=== PATIENT | male | born 1985 | race Caucasian/White ===

== ENCOUNTER 2018-07-21 10:12 | Inpatient (IN) | payer OTHER, SELFPAY ==
[2018-07-21] VITALS (11 sets, daily range): BP systolic 103–129; BP diastolic 52–69; PULSE 56–83; RESP 14–18; TEMP 36.4–37.2; O2SAT 97–100; BMI 22.4; BMI 19.0
--- NOTE | 2018-07-21 10:34 | DI.RAD.S_ITS ---
PROCEDURE: XR CHEST 2V INDICATIONS: blood in sputum coughing up blood h/o astma, non smoker TECHNIQUE: 2 views of the chest were acquired. COMPARISON: [facility], , CHEST 2 VIEW, 07/31/2011, 1:10. FINDINGS: Surgical changes and devices: None. Lungs and pleura: Lungs are clear. No pleural effusions or pneumothorax. Likely fibrotic changes are seen at the right lung base. Lungs are hyperexpanded. Mediastinum: Mediastinal contours are normal. Heart size is normal. Bones and chest wall: No suspicious bony abnormalities. Soft tissues appear unremarkable. IMPRESSION: Hyperexpanded lungs, without an acute cardiopulmonary process identified. For this patient's presenting history of hemoptysis, please consider a dedicated chest CT with contrast for further evaluation. Dictated by: Grant South M.D. on 07/21/2018 at 10:13 Approved by: Grant South M.D. on 07/21/2018 at 10:14
--- NOTE | 2018-07-21 11:54 | PC.NURSE ---
pt c/o bright red sputum, with cough started on . headache associated with cough, took ibuprofen this am, headache resolved now.
--- NOTE | 2018-07-21 12:15 | ED.URI ---
HPI - URI/Sore Throat <MUSTAPHA Braun - Last Filed: 07/21/18 22:05> General Chief Complaint: Upper Respiratory Symptoms Stated Complaint: coughing up blood Time Seen by Provider: 07/21/18 12:13 Source: patient Mode of arrival: ambulatory Limitations: no limitations History of Present Illness HPI Narrative: 33-year-old male with history of asthma that is a nonsmoker here for complaint of hemoptysis over the the past 3-4 days. He reports that he has had 4-6 episodes of hemoptysis daily for the past several days. No chest pain. He denies any fevers. No recent travel. He denies any exposure to TB. No fevers no chills. No shortness of breath. He does report having a cough over this is not new to him due to his asthma he states. He is able to speak full sentences. The denies any other concerns or complaints at this timeframe. Complaint: other Related Data Home Medications Medication Instructions Recorded Confirmed ibuprofen 400 mg PO Q4-6H PRN 07/21/18 07/21/18 mometasone-formoterol 1 puff INHALATION BID 07/21/18 07/21/18 zafirlukast 20 mg PO BID 07/21/18 07/21/18 Previous Rx's Medication Instructions Recorded pantoprazole 40 mg PO BID #1 tab 07/23/18 sumatriptan succinate [Imitrex] 100 mg PO PRN PRN #1 tab 07/23/18 warfarin [Coumadin] 5 mg PO 1700 #1 tab 07/23/18 Allergies Allergy/AdvReac Type Severity Reaction Status Date / Time No Known Drug Allergies Allergy Verified 07/21/18 10:31 Review of Systems <MUSTAPHA Braun - Last Filed: 07/21/18 22:05> Constitutional Denies chills, Denies fever(s), Denies lethargy and Denies weakness Eyes Denies change in vision, Denies eye discharge, Denies irritation and Denies loss of vision ENT Ears, Nose, Mouth, and Throat: Denies change in voice, Denies neck pain, Denies sore throat and Denies throat swelling Cardiovascular Denies chest pain, Denies irregular heart rhythm, Denies lightheadedness, Denies palpitations and Denies orthopnea Respiratory Denies wheezing Comments: Hemoptysis Musculoskeletal Denies neck pain Integumentary/Breasts Denies pruritus, Denies erythema, Denies rash and Denies wounds Neurologic Denies loss of vision and Denies weakness Endocrine Denies palpitations Hematologic/Lymphatic Denies easy bruising Allergic/Immunologic Denies urticaria, Denies throat swelling and Denies wheezing PFSH <MUSTAPHA Braun - Last Filed: 07/21/18 22:05> Medical History Asthma (Acute) GERD (gastroesophageal reflux disease) (Acute) History of alcohol abuse (Acute) Surgical History No history of previous surgery (Acute) Social History household members: spouse Smoking Status: Never smoker Social History household members: spouse Smoking Status: Never smoker Exam <MUSTAPHA Braun - Last Filed: 07/21/18 22:05> Initial Vital Signs Initial Vital Signs: Vital Signs Temperature 98.9 F 07/21/18 10:26 Pulse Rate 83 07/21/18 10:26 Respiratory Rate 18 07/21/18 10:26 Blood Pressure 117/65 07/21/18 10:26 Pulse Oximetry 98 07/21/18 10:26 Const General: cooperative and well developed Nutritional Appearance: well nourished Orientation: alert, awake, oriented x3 and not confused [facility] Mouth: oral mucosae normal and moist mucous membranes Throat: posterior oropharynx normal Eyes Conjunctivae: conjunctivae normal Sclera: sclerae normal Pupils: PERRL EOM: EOM intact bilaterally Chest Chest: normal inspection of the chest Resp Effort & Inspection: normal respiratory effort, able to speak in complete sentences, no respiratory distress and no use of accessory muscles Auscultation: clear to auscultation bilaterally, no rales, no rhonchi and no wheezes Cardio Rate: regular rate Rhythm: regular rhythm Heart Sounds: no click, no gallops, no murmurs and no rubs Pulses: normal peripheral pulses Skin General: no rashes or lesions noted, No jaundice and No petechiae Neuro General: alert, oriented x3, gait normal and no focal motor deficits Speech: speech normal <Rosanna C Mank, DO - Last Filed: 07/25/18 02:34> Initial Vital Signs Initial Vital Signs: Vital Signs Temperature 98.9 F 07/21/18 10:26 Pulse Rate 83 07/21/18 10:26 Respiratory Rate 18 07/21/18 10:26 Blood Pressure 117/65 07/21/18 10:26 Pulse Oximetry 98 07/21/18 10:26 Scores <MUSTAPHA Braun - Last Filed: 07/21/18 22:05> Wells' Criteria for PE Clinical signs and symptoms of PE: No PE is #1 Dx or equally likely: No Heart rate > 100: No Immobilization at least 3 days or surg in previous 4 weeks: No History of PE or DVT: No Hemoptysis: Yes Malignancy w/Treatment within 6 months or palliative: No Leroy' PE Score total: 1 Course <MUSTAPHA Braun - Last Filed: 07/21/18 22:05> Orders Ordered: Discontinued Medications Acetaminophen (Tylenol) 650 mg PO Q6HR PRN PRN Reason: Headache Last Admin: 07/22/18 11:08 Dose: 650 mg Admin: 07/21/18 22:31 Dose: 650 mg Acetaminophen/Butalbital/Caffeine (Fioricet) 1 each PO Q4HR PRN PRN Reason: Headache Last Admin: 07/23/18 11:35 Dose: 1 each Admin: 07/22/18 09:37 Dose: 1 each Hydrocodone Bitart/Acetaminophen ([place] 5/325) 1 tab PO NOW ONE Stop: 07/21/18 15:47 Last Admin: 07/21/18 15:49 Dose: 1 tab Heparin Sodium (Porcine) (Heparin) 5,000 unit 80 unit/kg (5000 unit) IV NOW ONE Stop: 07/21/18 14:05 Last Admin: 07/21/18 14:11 Dose: 5,000 unit Heparin Sodium (Porcine) (Heparin) 2,000 unit IV NOW ONE Stop: 07/21/18 22:46 Last Admin: 07/22/18 00:13 Dose: 2,000 unit Heparin Sodium (Porcine) (Heparin) 2,000 unit IV NOW ONE Stop: 07/22/18 12:39 Last Admin: 07/22/18 12:51 Dose: 2,000 unit Heparin Sodium/Dextrose (Heparin Drip) 25,000 unit in 500 mls @ 22.698 mls/hr IV CONT FLOR; Protocol Last Admin: 07/23/18 12:18 Dose: 17.45 units/kg/hr, 22 mls/hr Titration: 07/23/18 11:30 Dose: 17.45 units/kg/hr, 22 mls/hr Admin: 07/22/18 12:46 Dose: 17.45 units/kg/hr, 22 mls/hr Titration: 07/22/18 12:46 Dose: 15.86 units/kg/hr, 20 mls/hr Titration: 07/22/18 05:08 Dose: 15.86 units/kg/hr, 20 mls/hr Admin: 07/21/18 14:43 Dose: 18 units/kg/hr, 22.698 mls/hr Sodium Chloride (Normal Saline 0.9%) 1,000 mls @ 75 mls/hr IV CONT FLOR Stop: 07/23/18 11:49 Last Infusion: 07/23/18 11:37 Dose: 0 mls/hr Admin: 07/22/18 23:00 Dose: 75 mls/hr Influenza Virus Vaccine (Flu Vaccine) 0.5 ml IM .ONCE ONE Stop: 07/22/18 09:01 Last Admin: 07/22/18 08:58 Dose: 0.5 ml Mometasone- Formoterol (Dulera) 1 Puff 1 puff INHALATION BID [facility] Last Admin: 07/22/18 12:46 Dose: Not Given Admin: 07/22/18 09:01 Dose: Not Given Mometasone- Formoterol (Dulera) 1 Puff 1 puff INHALATION RTBID [facility] Last Admin: 07/23/18 05:42 Dose: 1 puff Admin: 07/22/18 20:32 Dose: 1 puff Admin: 07/22/18 09:40 Dose: 1 puff Non-Formulary Medication (Patient's Own Medication) 0 each PO DAILY PRN PRN Reason: Home medication Pantoprazole Sodium (Protonix) 40 mg IV BID [facility] Last Admin: 07/22/18 00:52 Dose: 40 mg Pantoprazole Sodium (Protonix) 40 mg PO BID [facility] Last Admin: 07/23/18 09:11 Dose: 40 mg Admin: 07/22/18 22:04 Dose: 40 mg Admin: 07/22/18 08:58 Dose: 40 mg Sodium Chloride (Normal Saline 0.9% Flush) 10 ml IV PRN PRN PRN Reason: Flush Sumatriptan Succinate (Imitrex) 100 mg PO PRN PRN PRN Reason: Headache Last Admin: 07/22/18 19:15 Dose: 100 mg Admin: 07/22/18 17:12 Dose: 100 mg Warfarin Sodium (Coumadin) 5 mg PO 1700 [facility] Last Admin: 07/22/18 19:08 Dose: 5 mg Zafirlukast (Accolate) 20 mg PO BID [facility] Last Admin: 07/23/18 05:45 Dose: 20 mg Admin: 07/22/18 20:32 Dose: 20 mg Admin: 07/22/18 08:58 Dose: 20 mg Admin: 07/22/18 00:09 Dose: Not Given Vital Signs - 8 hr 07/21/18 14:21 07/21/18 14:30 07/21/18 15:00 Temperature Pulse Rate 80 71 74 Respiratory Rate 14 15 14 Blood Pressure Blood Pressure [Left Arm] 117/63 122/69 113/67 Pulse Oximetry 98 100 100 07/21/18 16:19 07/21/18 16:43 07/21/18 16:55 Temperature 97.6 F Pulse Rate 70 69 62 Respiratory Rate 16 16 18 Blood Pressure 103/59 L 129/54 L Blood Pressure [Left Arm] 124/56 L Pulse Oximetry 97 100 97 07/21/18 20:31 07/21/18 21:58 Temperature 97.7 F Pulse Rate 56 L Respiratory Rate 18 Blood Pressure 115/52 L Blood Pressure [Left Arm] Pulse Oximetry 97 <Rosanna Alexis DO - Last Filed: 07/25/18 02:34> Orders Ordered: Discontinued Medications Acetaminophen (Tylenol) 650 mg PO Q6HR PRN PRN Reason: Headache Last Admin: 07/22/18 11:08 Dose: 650 mg Admin: 07/21/18 22:31 Dose: 650 mg Acetaminophen/Butalbital/Caffeine (Fioricet) 1 each PO Q4HR PRN PRN Reason: Headache Last Admin: 07/23/18 11:35 Dose: 1 each Admin: 07/22/18 09:37 Dose: 1 each Hydrocodone Bitart/Acetaminophen ([place] 5/325) 1 tab PO NOW ONE Stop: 07/21/18 15:47 Last Admin: 07/21/18 15:49 Dose: 1 tab Heparin Sodium (Porcine) (Heparin) 5,000 unit 80 unit/kg (5000 unit) IV NOW ONE Stop: 07/21/18 14:05 Last Admin: 07/21/18 14:11 Dose: 5,000 unit Heparin Sodium (Porcine) (Heparin) 2,000 unit IV NOW ONE Stop: 07/21/18 22:46 Last Admin: 07/22/18 00:13 Dose: 2,000 unit Heparin Sodium (Porcine) (Heparin) 2,000 unit IV NOW ONE Stop: 07/22/18 12:39 Last Admin: 07/22/18 12:51 Dose: 2,000 unit Heparin Sodium/Dextrose (Heparin Drip) 25,000 unit in 500 mls @ 22.698 mls/hr IV CONT FLOR; Protocol Last Admin: 07/23/18 12:18 Dose: 17.45 units/kg/hr, 22 mls/hr Titration: 07/23/18 11:30 Dose: 17.45 units/kg/hr, 22 mls/hr Admin: 07/22/18 12:46 Dose: 17.45 units/kg/hr, 22 mls/hr Titration: 07/22/18 12:46 Dose: 15.86 units/kg/hr, 20 mls/hr Titration: 07/22/18 05:08 Dose: 15.86 units/kg/hr, 20 mls/hr Admin: 07/21/18 14:43 Dose: 18 units/kg/hr, 22.698 mls/hr Sodium Chloride (Normal Saline 0.9%) 1,000 mls @ 75 mls/hr IV CONT FLOR Stop: 07/23/18 11:49 Last Infusion: 07/23/18 11:37 Dose: 0 mls/hr Admin: 07/22/18 23:00 Dose: 75 mls/hr Influenza Virus Vaccine (Flu Vaccine) 0.5 ml IM .ONCE ONE Stop: 07/22/18 09:01 Last Admin: 07/22/18 08:58 Dose: 0.5 ml Mometasone- Formoterol (Dulera) 1 Puff 1 puff INHALATION BID [facility] Last Admin: 07/22/18 12:46 Dose: Not Given Admin: 07/22/18 09:01 Dose: Not Given Mometasone- Formoterol (Dulera) 1 Puff 1 puff INHALATION RTBID [facility] Last Admin: 07/23/18 05:42 Dose: 1 puff Admin: 07/22/18 20:32 Dose: 1 puff Admin: 07/22/18 09:40 Dose: 1 puff Non-Formulary Medication (Patient's Own Medication) 0 each PO DAILY PRN PRN Reason: Home medication Pantoprazole Sodium (Protonix) 40 mg IV BID [facility] Last Admin: 07/22/18 00:52 Dose: 40 mg Pantoprazole Sodium (Protonix) 40 mg PO BID [facility] Last Admin: 07/23/18 09:11 Dose: 40 mg Admin: 07/22/18 22:04 Dose: 40 mg Admin: 07/22/18 08:58 Dose: 40 mg Sodium Chloride (Normal Saline 0.9% Flush) 10 ml IV PRN PRN PRN Reason: Flush Sumatriptan Succinate (Imitrex) 100 mg PO PRN PRN PRN Reason: Headache Last Admin: 07/22/18 19:15 Dose: 100 mg Admin: 07/22/18 17:12 Dose: 100 mg Warfarin Sodium (Coumadin) 5 mg PO 1700 [facility] Last Admin: 07/22/18 19:08 Dose: 5 mg Zafirlukast (Accolate) 20 mg PO BID [facility] Last Admin: 07/23/18 05:45 Dose: 20 mg Admin: 07/22/18 20:32 Dose: 20 mg Admin: 07/22/18 08:58 Dose: 20 mg Admin: 07/22/18 00:09 Dose: Not Given Vital Signs - 8 hr 07/21/18 14:21 07/21/18 14:30 07/21/18 15:00 Temperature Pulse Rate 80 71 74 Respiratory Rate 14 15 14 Blood Pressure Blood Pressure [Left Arm] 117/63 122/69 113/67 Pulse Oximetry 98 100 100 07/21/18 16:19 07/21/18 16:43 07/21/18 16:55 Temperature 97.6 F Pulse Rate 70 69 62 Respiratory Rate 16 16 18 Blood Pressure 103/59 L 129/54 L Blood Pressure [Left Arm] 124/56 L Pulse Oximetry 97 100 97 07/21/18 20:31 07/21/18 21:58 Temperature 97.7 F Pulse Rate 56 L Respiratory Rate 18 Blood Pressure 115/52 L Blood Pressure [Left Arm] Pulse Oximetry 97 MDM - URI/Sore Throat <MUSTAPHA Braun - Last Filed: 07/21/18 22:05> Lab Data Result diagrams: 07/23/18 05:30 07/23/18 05:30 Lab Results 07/21/18 07/21/18 07/21/18 Range/Units 12:45 12:45 12:45 WBC 10.0 (4.5-11.0) X10^3/uL RBC 4.57 (4.5-5.9) X10^6/uL Hgb 13.9 (13.5-17.5) g/dL Hct 41.6 (41-53) % MCV 91.1 (80-100) fL MCH 30.5 (26-34) PG MCHC 33.5 (30-36) % RDW 13.0 (11.6-14.8) % Plt Count 277 (150-400) X10^3/uL Neut % (Auto) 73.6 (50-75) % Lymph % (Auto) 19.3 L (25-40) % [place] % (Auto) 6.6 (3-14) % Eos % (Auto) 0.1 L (2-4) % Baso % (Auto) 0.4 (0-2) % Neut # (Auto) 7300 H (9343-0534) /uL Lymph # (Auto) 1900 (6697-2824) /uL [place] # (Auto) 700 (0-900) /uL Eos # (Auto) 0 (0-450) /uL Baso # (Auto) 0 (0-100) /uL PT 11.7 (10.1-12.7) SECONDS INR 1.0 (0.9-1.3) APTT 28 (26.4-36.2) SECONDS Sodium 139 (137-145) mmol/L Potassium 4.3 (3.4-5.1) mmol/L Chloride 102 (98-107) mmol/L Carbon Dioxide 28 (22-32) mmol/L BUN 12 (9-20) mg/dL Creatinine 0.70 (0.66-1.25) mg/dL Estimated GFR > 60.0 (>60) mL/min BUN/Creatinine Ratio 17.1 (6-22) Glucose 94 (70-100) mg/dL Calcium 9.3 (8.4-10.2) mg/dL Total Bilirubin 0.4 (0.2-1.3) mg/dL Conjugated Bilirubin (0.0-0.3) md/dL Unconjugated Bilirubin (0.0-1.1) mg/dL AST 32 (17-59) IU/L ALT 53 (21-72) IU/L Alkaline Phosphatase 68 (38-126) U/L Total Protein 7.2 (6.3-8.2) g/dL Albumin 4.5 (3.5-5.0) g/dL Globulin 2.7 (1.7-4.1) g/dL Albumin/Globulin Ratio 1.7 (1.0-2.8) Kcnrx-0-Hxmoahkmrvk (83-199) mg/dL Procalcitonin (<0.5) ng/mL 07/21/18 07/21/18 07/21/18 Range/Units 21:18 23:10 23:10 WBC (4.5-11.0) X10^3/uL RBC (4.5-5.9) X10^6/uL Hgb (13.5-17.5) g/dL Hct (41-53) % MCV (80-100) fL MCH (26-34) PG MCHC (30-36) % RDW (11.6-14.8) % Plt Count (150-400) X10^3/uL Neut % (Auto) (50-75) % Lymph % (Auto) (25-40) % [place] % (Auto) (3-14) % Eos % (Auto) (2-4) % Baso % (Auto) (0-2) % Neut # (Auto) (7708-0626) /uL Lymph # (Auto) (9149-7721) /uL [place] # (Auto) (0-900) /uL Eos # (Auto) (0-450) /uL Baso # (Auto) (0-100) /uL PT (10.1-12.7) SECONDS INR (0.9-1.3) APTT 58 H D (26.4-36.2) SECONDS Sodium (137-145) mmol/L Potassium (3.4-5.1) mmol/L Chloride (98-107) mmol/L Carbon Dioxide (22-32) mmol/L BUN (9-20) mg/dL Creatinine (0.66-1.25) mg/dL Estimated GFR (>60) mL/min BUN/Creatinine Ratio (6-22) Glucose (70-100) mg/dL Calcium (8.4-10.2) mg/dL Total Bilirubin 0.3 (0.2-1.3) mg/dL Conjugated Bilirubin 0.0 (0.0-0.3) md/dL Unconjugated Bilirubin 0.1 (0.0-1.1) mg/dL AST 28 (17-59) IU/L ALT 47 (21-72) IU/L Alkaline Phosphatase 66 (38-126) U/L Total Protein 6.6 (6.3-8.2) g/dL Albumin 4.0 (3.5-5.0) g/dL Globulin 2.6 (1.7-4.1) g/dL Albumin/Globulin Ratio 1.5 (1.0-2.8) Fikgd-7-Kzryohsqney 115 (83-199) mg/dL Procalcitonin (<0.5) ng/mL 07/22/18 07/22/18 07/22/18 Range/Units 04:33 04:33 04:33 WBC 7.3 (4.5-11.0) X10^3/uL RBC 4.61 (4.5-5.9) X10^6/uL Hgb 14.1 (13.5-17.5) g/dL Hct 42.2 (41-53) % MCV 91.4 (80-100) fL MCH 30.6 (26-34) PG MCHC 33.5 (30-36) % RDW 12.9 (11.6-14.8) % Plt Count 254 (150-400) X10^3/uL Neut % (Auto) 50.6 D (50-75) % Lymph % (Auto) 38.1 (25-40) % [place] % (Auto) 8.8 (3-14) % Eos % (Auto) 2.0 (2-4) % Baso % (Auto) 0.5 (0-2) % Neut # (Auto) 3700 (2188-9038) /uL Lymph # (Auto) 2800 (8141-1699) /uL [place] # (Auto) 600 (0-900) /uL Eos # (Auto) 100 (0-450) /uL Baso # (Auto) 0 (0-100) /uL PT (10.1-12.7) SECONDS INR (0.9-1.3) APTT 72 H D (26.4-36.2) SECONDS Sodium (137-145) mmol/L Potassium (3.4-5.1) mmol/L Chloride (98-107) mmol/L Carbon Dioxide (22-32) mmol/L BUN (9-20) mg/dL Creatinine (0.66-1.25) mg/dL Estimated GFR (>60) mL/min BUN/Creatinine Ratio (6-22) Glucose (70-100) mg/dL Calcium (8.4-10.2) mg/dL Total Bilirubin (0.2-1.3) mg/dL Conjugated Bilirubin (0.0-0.3) md/dL Unconjugated Bilirubin (0.0-1.1) mg/dL AST (17-59) IU/L ALT (21-72) IU/L Alkaline Phosphatase (38-126) U/L Total Protein (6.3-8.2) g/dL Albumin (3.5-5.0) g/dL Globulin (1.7-4.1) g/dL Albumin/Globulin Ratio (1.0-2.8) Cnoga-2-Qcnxejlblgz (83-199) mg/dL Procalcitonin < 0.05 (<0.5) ng/mL 07/22/18 07/22/18 07/22/18 Range/Units 10:30 18:43 18:43 WBC 8.3 (4.5-11.0) X10^3/uL RBC 4.65 (4.5-5.9) X10^6/uL Hgb 14.3 (13.5-17.5) g/dL Hct 42.5 (41-53) % MCV 91.3 (80-100) fL MCH 30.8 (26-34) PG MCHC 33.7 (30-36) % RDW 12.9 (11.6-14.8) % Plt Count 272 (150-400) X10^3/uL Neut % (Auto) 60.0 (50-75) % Lymph % (Auto) 29.1 (25-40) % [place] % (Auto) 8.9 (3-14) % Eos % (Auto) 1.5 L (2-4) % Baso % (Auto) 0.5 (0-2) % Neut # (Auto) 5000 (3778-6361) /uL Lymph # (Auto) 2400 (5645-8851) /uL [place] # (Auto) 700 (0-900) /uL Eos # (Auto) 100 (0-450) /uL Baso # (Auto) 0 (0-100) /uL PT (10.1-12.7) SECONDS INR (0.9-1.3) APTT 56 H D 75 H* D (26.4-36.2) SECONDS Sodium (137-145) mmol/L Potassium (3.4-5.1) mmol/L Chloride (98-107) mmol/L Carbon Dioxide (22-32) mmol/L BUN (9-20) mg/dL Creatinine (0.66-1.25) mg/dL Estimated GFR (>60) mL/min BUN/Creatinine Ratio (6-22) Glucose (70-100) mg/dL Calcium (8.4-10.2) mg/dL Total Bilirubin (0.2-1.3) mg/dL Conjugated Bilirubin (0.0-0.3) md/dL Unconjugated Bilirubin (0.0-1.1) mg/dL AST (17-59) IU/L ALT (21-72) IU/L Alkaline Phosphatase (38-126) U/L Total Protein (6.3-8.2) g/dL Albumin (3.5-5.0) g/dL Globulin (1.7-4.1) g/dL Albumin/Globulin Ratio (1.0-2.8) Vpult-2-Scnsyfhgkqw (83-199) mg/dL Procalcitonin (<0.5) ng/mL 07/23/18 07/23/18 07/23/18 Range/Units 00:30 05:30 05:30 WBC 7.8 (4.5-11.0) X10^3/uL RBC 4.65 (4.5-5.9) X10^6/uL Hgb 14.3 (13.5-17.5) g/dL Hct 42.6 (41-53) % MCV 91.6 (80-100) fL MCH 30.7 (26-34) PG MCHC 33.5 (30-36) % RDW 13.2 (11.6-14.8) % Plt Count 255 (150-400) X10^3/uL Neut % (Auto) 62.4 (50-75) % Lymph % (Auto) 25.3 (25-40) % [place] % (Auto) 10.0 (3-14) % Eos % (Auto) 1.8 L (2-4) % Baso % (Auto) 0.5 (0-2) % Neut # (Auto) 4900 (5402-7870) /uL Lymph # (Auto) 2000 (6866-0457) /uL [place] # (Auto) 800 (0-900) /uL Eos # (Auto) 100 (0-450) /uL Baso # (Auto) 0 (0-100) /uL PT (10.1-12.7) SECONDS INR (0.9-1.3) APTT 70 H D (26.4-36.2) SECONDS Sodium (137-145) mmol/L Potassium (3.4-5.1) mmol/L Chloride (98-107) mmol/L Carbon Dioxide (22-32) mmol/L BUN (9-20) mg/dL Creatinine (0.66-1.25) mg/dL Estimated GFR (>60) mL/min BUN/Creatinine Ratio (6-22) Glucose (70-100) mg/dL Calcium (8.4-10.2) mg/dL Total Bilirubin (0.2-1.3) mg/dL Conjugated Bilirubin (0.0-0.3) md/dL Unconjugated Bilirubin (0.0-1.1) mg/dL AST (17-59) IU/L ALT (21-72) IU/L Alkaline Phosphatase (38-126) U/L Total Protein (6.3-8.2) g/dL Albumin (3.5-5.0) g/dL Globulin (1.7-4.1) g/dL Albumin/Globulin Ratio (1.0-2.8) Pipby-1-Iutpzbiobaa (83-199) mg/dL Procalcitonin < 0.05 (<0.5) ng/mL 07/23/18 07/23/18 Range/Units 05:30 05:30 WBC (4.5-11.0) X10^3/uL RBC (4.5-5.9) X10^6/uL Hgb (13.5-17.5) g/dL Hct (41-53) % MCV (80-100) fL MCH (26-34) PG MCHC (30-36) % RDW (11.6-14.8) % Plt Count (150-400) X10^3/uL Neut % (Auto) (50-75) % Lymph % (Auto) (25-40) % [place] % (Auto) (3-14) % Eos % (Auto) (2-4) % Baso % (Auto) (0-2) % Neut # (Auto) (5242-2094) /uL Lymph # (Auto) (6452-6831) /uL [place] # (Auto) (0-900) /uL Eos # (Auto) (0-450) /uL Baso # (Auto) (0-100) /uL PT 11.8 (10.1-12.7) SECONDS INR 1.0 (0.9-1.3) APTT 66 H D (26.4-36.2) SECONDS Sodium 139 (137-145) mmol/L Potassium 4.3 (3.4-5.1) mmol/L Chloride 105 (98-107) mmol/L Carbon Dioxide 26 (22-32) mmol/L BUN 12 (9-20) mg/dL Creatinine 0.60 L (0.66-1.25) mg/dL Estimated GFR > 60.0 (>60) mL/min BUN/Creatinine Ratio 20.0 (6-22) Glucose 108 H (70-100) mg/dL Calcium 9.3 (8.4-10.2) mg/dL Total Bilirubin (0.2-1.3) mg/dL Conjugated Bilirubin (0.0-0.3) md/dL Unconjugated Bilirubin (0.0-1.1) mg/dL AST (17-59) IU/L ALT (21-72) IU/L Alkaline Phosphatase (38-126) U/L Total Protein (6.3-8.2) g/dL Albumin (3.5-5.0) g/dL Globulin (1.7-4.1) g/dL Albumin/Globulin Ratio (1.0-2.8) Ljjhq-9-Hxjjzbsjdgx (83-199) mg/dL Procalcitonin (<0.5) ng/mL Imaging Data Chest x-ray: Radiologist's impression: [address] [id number] XRay Report Signed Patient: Willian Abernathy [facility]#: [id number] : 1985Acct:[id number] Age/Sex: 33 / MDate of Service: 07/21/18 Loc: ED Accession Number: [id number] Procedure: XR chest 2V Ordering Provider: Rosanna Alexis D.O. PROCEDURE: XR CHEST 2V INDICATIONS: blood in sputum coughing up blood h/o astma, non smoker TECHNIQUE: 2 views of the chest were acquired. COMPARISON: [facility], , CHEST 2 VIEW, 07/31/2011, 1:10. FINDINGS: Surgical changes and devices: None. Lungs and pleura: Lungs are clear. No pleural effusions or pneumothorax. Likely fibrotic changes are seen at the right lung base. Lungs are hyperexpanded. Mediastinum: Mediastinal contours are normal. Heart size is normal. Bones and chest wall: No suspicious bony abnormalities. Soft tissues appear unremarkable. IMPRESSION: Hyperexpanded lungs, without an acute cardiopulmonary process identified. For this patient's presenting history of hemoptysis, please consider a dedicated chest CT with contrast for further evaluation. Dictated by: Grant South M.D. on 07/21/2018 at 10:13 Approved by: Grant South M.D. on 07/21/2018 at 10:14 CT scan - chest: Radiologist's impression: [address] [address] [address] Scan Report Signed Patient: Willian Abernathy [facility]#: [id number] : 1985Acct:[id number] Age/Sex: 33 / MDate of Service: 07/21/18 Loc: ED Accession Number: [id number] Procedure: CT angio chest PE protocol Ordering Provider: Josr Peters PROCEDURE: CT ANGIO CHEST PE PROTOCOL INDICATIONS: Hemoptysis TECHNIQUE: After the administration of intravenous contrast, 2 mm thick sections acquired from the pulmonary apices to the posterior costophrenic angles. 3-dimensional maximum intensity projection (MIP) coronal and sagittal reformats were then acquired through the thorax. For radiation dose reduction, the following was used: automated exposure control, adjustment of mA and/or kV according to patient size. COMPARISON: None. FINDINGS: Image quality: Diagnostic. Pulmonary arteries: Multiple small pulmonary emboli are evident within the bilateral lungs. These emboli are noted to partially narrow the origins of the left upper and left lower pulmonary arterial branches. Smaller segmental emboli are seen within the right sided pulmonary arteries. No large saddle embolism is evident. The main pulmonary arterial trunk is not enlarged. Lungs and pleura: Prominent emphysematous changes are diffusely evident throughout the lungs, which is more pronounced within the lung bases. Prominent bronchial wall thickening within the bilateral lung bases is also present. Scattered areas of bronchiectasis and rounded areas of increased density within the lung bases are present. No lobar consolidation, effusion, or pneumothorax is evident. Areas of basilar scarring are present. There is no lung mass or definitive pulmonary nodule. Mediastinum: Heart size is normal, without pericardial effusion. Borderline prominent mediastinal and hilar lymph nodes are identified. There may be esophageal varices. Thoracic aorta is normal in caliber and enhancement. Esophagus is normal in caliber, without hiatal hernia. Bones and chest wall: No suspicious bony lesions. Ribs and thoracic spine appear intact throughout. Thyroid gland is not enlarged or inflamed. No axillary or supraclavicular adenopathy. Abdomen: Visualized upper abdominal solid organs appear normal in the early arterial phase of enhancement. IMPRESSION: 1. Multiple bilateral pulmonary emboli are evident (small to moderate degree of embolic load). 2. Severe basilar predominant emphysematous changes of the lungs are nonspecific, but highly unusual for the patient's age. Asthma is felt to be an unlikely cause for this appearance, but cannot be completely excluded. Please correlate clinically for other chronic pulmonary diseases, such as alpha-1 antitrypsin deficiency or potentially pulmonary Langerhans cell histiocytosis. 3. Prominent bronchiectasis within the bilateral infrahilar regions with questionable areas of either focal bronchiectasis versus early cystic changes within the lungs versus small cavitary lesions. An infectious process should be excluded clinically. Please consider followup CT of the chest in approximately 6-8 weeks. 4. Borderline prominent hilar and mediastinal lymph nodes. 5. Nonspecific prominence of the wall of the esophagus. Please correlate clinically to exclude esophagitis. 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 Note: Findings were discussed with Josr Peters at 1340 hours (PST) on 07/21/18. Dictated by: Michael Marrero M.D. on 07/21/2018 at 12:34 Approved by: Michael Marrero M.D. on 07/21/2018 at 12:48 ECG Data Interpretation: EKG shows normal sinus rhythm with no ST elevation no depression. No ectopy. Ventricular rate of 61. Pr interval of 160. QRS duration 98. QTC 371. S1 Q3 T3 negative MDM Narrative Medical decision making narrative: CBC was obtained and was unremarkable. Chem panel was obtained and was unremarkable. INR was obtained and was normal. EKG shows sinus rhythm with no ST elevation or depression. No ectopy. S1 q3 T3 negative. Chest x-ray was obtained was negative for any acute findings. PE protocol CT was then obtained and shows multiple small bilateral pulmonary emboli. Patient with no prior history of PE or blood clots. He denies any recent travel or immobilization. He has no shortness of breath. No chest pain. Chest CT also shows significant bibasilar findings consistent with emphysema. Recommend further workup with pulmonology to rule out alpha 1 antitrypsin deficiency and Langerhans cell histiocytosis. He was given a heparin and heparin drip started in the emergency room. He is admitted for continued observation. Dr. Cole hospitalist accepted patient <Rosanna Alexis, - Last Filed: 07/25/18 02:34> Lab Data Lab Results 07/21/18 07/21/18 07/21/18 Range/Units 12:45 12:45 12:45 WBC 10.0 (4.5-11.0) X10^3/uL RBC 4.57 (4.5-5.9) X10^6/uL Hgb 13.9 (13.5-17.5) g/dL Hct 41.6 (41-53) % MCV 91.1 (80-100) fL MCH 30.5 (26-34) PG MCHC 33.5 (30-36) % RDW 13.0 (11.6-14.8) % Plt Count 277 (150-400) X10^3/uL Neut % (Auto) 73.6 (50-75) % Lymph % (Auto) 19.3 L (25-40) % [place] % (Auto) 6.6 (3-14) % Eos % (Auto) 0.1 L (2-4) % Baso % (Auto) 0.4 (0-2) % Neut # (Auto) 7300 H (3798-4365) /uL Lymph # (Auto) 1900 (0674-1932) /uL [place] # (Auto) 700 (0-900) /uL Eos # (Auto) 0 (0-450) /uL Baso # (Auto) 0 (0-100) /uL PT 11.7 (10.1-12.7) SECONDS INR 1.0 (0.9-1.3) APTT 28 (26.4-36.2) SECONDS Sodium 139 (137-145) mmol/L Potassium 4.3 (3.4-5.1) mmol/L Chloride 102 (98-107) mmol/L Carbon Dioxide 28 (22-32) mmol/L BUN 12 (9-20) mg/dL Creatinine 0.70 (0.66-1.25) mg/dL Estimated GFR > 60.0 (>60) mL/min BUN/Creatinine Ratio 17.1 (6-22) Glucose 94 (70-100) mg/dL Calcium 9.3 (8.4-10.2) mg/dL Total Bilirubin 0.4 (0.2-1.3) mg/dL Conjugated Bilirubin (0.0-0.3) md/dL Unconjugated Bilirubin (0.0-1.1) mg/dL AST 32 (17-59) IU/L ALT 53 (21-72) IU/L Alkaline Phosphatase 68 (38-126) U/L Total Protein 7.2 (6.3-8.2) g/dL Albumin 4.5 (3.5-5.0) g/dL Globulin 2.7 (1.7-4.1) g/dL Albumin/Globulin Ratio 1.7 (1.0-2.8) Flmzw-4-Gykpuqgyhkg (83-199) mg/dL Procalcitonin (<0.5) ng/mL 07/21/18 07/21/18 07/21/18 Range/Units 21:18 23:10 23:10 WBC (4.5-11.0) X10^3/uL RBC (4.5-5.9) X10^6/uL Hgb (13.5-17.5) g/dL Hct (41-53) % MCV (80-100) fL MCH (26-34) PG MCHC (30-36) % RDW (11.6-14.8) % Plt Count (150-400) X10^3/uL Neut % (Auto) (50-75) % Lymph % (Auto) (25-40) % [place] % (Auto) (3-14) % Eos % (Auto) (2-4) % Baso % (Auto) (0-2) % Neut # (Auto) (9786-0433) /uL Lymph # (Auto) (8574-0672) /uL [place] # (Auto) (0-900) /uL Eos # (Auto) (0-450) /uL Baso # (Auto) (0-100) /uL PT (10.1-12.7) SECONDS INR (0.9-1.3) APTT 58 H D (26.4-36.2) SECONDS Sodium (137-145) mmol/L Potassium (3.4-5.1) mmol/L Chloride (98-107) mmol/L Carbon Dioxide (22-32) mmol/L BUN (9-20) mg/dL Creatinine (0.66-1.25) mg/dL Estimated GFR (>60) mL/min BUN/Creatinine Ratio (6-22) Glucose (70-100) mg/dL Calcium (8.4-10.2) mg/dL Total Bilirubin 0.3 (0.2-1.3) mg/dL Conjugated Bilirubin 0.0 (0.0-0.3) md/dL Unconjugated Bilirubin 0.1 (0.0-1.1) mg/dL AST 28 (17-59) IU/L ALT 47 (21-72) IU/L Alkaline Phosphatase 66 (38-126) U/L Total Protein 6.6 (6.3-8.2) g/dL Albumin 4.0 (3.5-5.0) g/dL Globulin 2.6 (1.7-4.1) g/dL Albumin/Globulin Ratio 1.5 (1.0-2.8) Ksimc-3-Qlwcmsdisve 115 (83-199) mg/dL Procalcitonin (<0.5) ng/mL 07/22/18 07/22/18 07/22/18 Range/Units 04:33 04:33 04:33 WBC 7.3 (4.5-11.0) X10^3/uL RBC 4.61 (4.5-5.9) X10^6/uL Hgb 14.1 (13.5-17.5) g/dL Hct 42.2 (41-53) % MCV 91.4 (80-100) fL MCH 30.6 (26-34) PG MCHC 33.5 (30-36) % RDW 12.9 (11.6-14.8) % Plt Count 254 (150-400) X10^3/uL Neut % (Auto) 50.6 D (50-75) % Lymph % (Auto) 38.1 (25-40) % [place] % (Auto) 8.8 (3-14) % Eos % (Auto) 2.0 (2-4) % Baso % (Auto) 0.5 (0-2) % Neut # (Auto) 3700 (5048-3788) /uL Lymph # (Auto) 2800 (9394-0165) /uL [place] # (Auto) 600 (0-900) /uL Eos # (Auto) 100 (0-450) /uL Baso # (Auto) 0 (0-100) /uL PT (10.1-12.7) SECONDS INR (0.9-1.3) APTT 72 H D (26.4-36.2) SECONDS Sodium (137-145) mmol/L Potassium (3.4-5.1) mmol/L Chloride (98-107) mmol/L Carbon Dioxide (22-32) mmol/L BUN (9-20) mg/dL Creatinine (0.66-1.25) mg/dL Estimated GFR (>60) mL/min BUN/Creatinine Ratio (6-22) Glucose (70-100) mg/dL Calcium (8.4-10.2) mg/dL Total Bilirubin (0.2-1.3) mg/dL Conjugated Bilirubin (0.0-0.3) md/dL Unconjugated Bilirubin (0.0-1.1) mg/dL AST (17-59) IU/L ALT (21-72) IU/L Alkaline Phosphatase (38-126) U/L Total Protein (6.3-8.2) g/dL Albumin (3.5-5.0) g/dL Globulin (1.7-4.1) g/dL Albumin/Globulin Ratio (1.0-2.8) Tqiqb-1-Iguloyjnoll (83-199) mg/dL Procalcitonin < 0.05 (<0.5) ng/mL 07/22/18 07/22/18 07/22/18 Range/Units 10:30 18:43 18:43 WBC 8.3 (4.5-11.0) X10^3/uL RBC 4.65 (4.5-5.9) X10^6/uL Hgb 14.3 (13.5-17.5) g/dL Hct 42.5 (41-53) % MCV 91.3 (80-100) fL MCH 30.8 (26-34) PG MCHC 33.7 (30-36) % RDW 12.9 (11.6-14.8) % Plt Count 272 (150-400) X10^3/uL Neut % (Auto) 60.0 (50-75) % Lymph % (Auto) 29.1 (25-40) % [place] % (Auto) 8.9 (3-14) % Eos % (Auto) 1.5 L (2-4) % Baso % (Auto) 0.5 (0-2) % Neut # (Auto) 5000 (4309-3951) /uL Lymph # (Auto) 2400 (8601-1450) /uL [place] # (Auto) 700 (0-900) /uL Eos # (Auto) 100 (0-450) /uL Baso # (Auto) 0 (0-100) /uL PT (10.1-12.7) SECONDS INR (0.9-1.3) APTT 56 H D 75 H* D (26.4-36.2) SECONDS Sodium (137-145) mmol/L Potassium (3.4-5.1) mmol/L Chloride (98-107) mmol/L Carbon Dioxide (22-32) mmol/L BUN (9-20) mg/dL Creatinine (0.66-1.25) mg/dL Estimated GFR (>60) mL/min BUN/Creatinine Ratio (6-22) Glucose (70-100) mg/dL Calcium (8.4-10.2) mg/dL Total Bilirubin (0.2-1.3) mg/dL Conjugated Bilirubin (0.0-0.3) md/dL Unconjugated Bilirubin (0.0-1.1) mg/dL AST (17-59) IU/L ALT (21-72) IU/L Alkaline Phosphatase (38-126) U/L Total Protein (6.3-8.2) g/dL Albumin (3.5-5.0) g/dL Globulin (1.7-4.1) g/dL Albumin/Globulin Ratio (1.0-2.8) Wmggo-9-Slddcprusxp (83-199) mg/dL Procalcitonin (<0.5) ng/mL 07/23/18 07/23/18 07/23/18 Range/Units 00:30 05:30 05:30 WBC 7.8 (4.5-11.0) X10^3/uL RBC 4.65 (4.5-5.9) X10^6/uL Hgb 14.3 (13.5-17.5) g/dL Hct 42.6 (41-53) % MCV 91.6 (80-100) fL MCH 30.7 (26-34) PG MCHC 33.5 (30-36) % RDW 13.2 (11.6-14.8) % Plt Count 255 (150-400) X10^3/uL Neut % (Auto) 62.4 (50-75) % Lymph % (Auto) 25.3 (25-40) % [place] % (Auto) 10.0 (3-14) % Eos % (Auto) 1.8 L (2-4) % Baso % (Auto) 0.5 (0-2) % Neut # (Auto) 4900 (8863-7896) /uL Lymph # (Auto) 2000 (2918-3328) /uL [place] # (Auto) 800 (0-900) /uL Eos # (Auto) 100 (0-450) /uL Baso # (Auto) 0 (0-100) /uL PT (10.1-12.7) SECONDS INR (0.9-1.3) APTT 70 H D (26.4-36.2) SECONDS Sodium (137-145) mmol/L Potassium (3.4-5.1) mmol/L Chloride (98-107) mmol/L Carbon Dioxide (22-32) mmol/L BUN (9-20) mg/dL Creatinine (0.66-1.25) mg/dL Estimated GFR (>60) mL/min BUN/Creatinine Ratio (6-22) Glucose (70-100) mg/dL Calcium (8.4-10.2) mg/dL Total Bilirubin (0.2-1.3) mg/dL Conjugated Bilirubin (0.0-0.3) md/dL Unconjugated Bilirubin (0.0-1.1) mg/dL AST (17-59) IU/L ALT (21-72) IU/L Alkaline Phosphatase (38-126) U/L Total Protein (6.3-8.2) g/dL Albumin (3.5-5.0) g/dL Globulin (1.7-4.1) g/dL Albumin/Globulin Ratio (1.0-2.8) Dfzet-6-Xgltspgdvqo (83-199) mg/dL Procalcitonin < 0.05 (<0.5) ng/mL 07/23/18 07/23/18 Range/Units 05:30 05:30 WBC (4.5-11.0) X10^3/uL RBC (4.5-5.9) X10^6/uL Hgb (13.5-17.5) g/dL Hct (41-53) % MCV (80-100) fL MCH (26-34) PG MCHC (30-36) % RDW (11.6-14.8) % Plt Count (150-400) X10^3/uL Neut % (Auto) (50-75) % Lymph % (Auto) (25-40) % [place] % (Auto) (3-14) % Eos % (Auto) (2-4) % Baso % (Auto) (0-2) % Neut # (Auto) (2061-2838) /uL Lymph # (Auto) (8539-5009) /uL [place] # (Auto) (0-900) /uL Eos # (Auto) (0-450) /uL Baso # (Auto) (0-100) /uL PT 11.8 (10.1-12.7) SECONDS INR 1.0 (0.9-1.3) APTT 66 H D (26.4-36.2) SECONDS Sodium 139 (137-145) mmol/L Potassium 4.3 (3.4-5.1) mmol/L Chloride 105 (98-107) mmol/L Carbon Dioxide 26 (22-32) mmol/L BUN 12 (9-20) mg/dL Creatinine 0.60 L (0.66-1.25) mg/dL Estimated GFR > 60.0 (>60) mL/min BUN/Creatinine Ratio 20.0 (6-22) Glucose 108 H (70-100) mg/dL Calcium 9.3 (8.4-10.2) mg/dL Total Bilirubin (0.2-1.3) mg/dL Conjugated Bilirubin (0.0-0.3) md/dL Unconjugated Bilirubin (0.0-1.1) mg/dL AST (17-59) IU/L ALT (21-72) IU/L Alkaline Phosphatase (38-126) U/L Total Protein (6.3-8.2) g/dL Albumin (3.5-5.0) g/dL Globulin (1.7-4.1) g/dL Albumin/Globulin Ratio (1.0-2.8) Ubikl-4-Glubtgccxeq (83-199) mg/dL Procalcitonin (<0.5) ng/mL Discharge Plan Departure Patient Disposition: Admitted As Inpatient Clinical Impression: Pulmonary emboli Qualifiers: Pulmonary embolism type: unspecified Chronicity: acute Acute cor pulmonale presence: with acute cor pulmonale Qualified Code(s): I26.09 - Other pulmonary embolism with acute cor pulmonale Discharge Date/Time: 07/21/18 16:45 Interventions: ED Discharge Assessment Last Done: 07/21/18 16:43 Admit Date/Time: 07/21/18 15:09 Admit Provider: Ofelia Cole <Rosanna Alexis DO - Last Filed: 07/25/18 02:34> Cosign ED Attending Cosignature Attestation: I was immediately available in the department for consultation, case was discussed. This documentation has been reviewed and I agree with assessment and plan. Supervised by Rosanna Alexis DO
--- NOTE | 2018-07-21 12:31 | DI.CT.S_ITS ---
PROCEDURE: CT ANGIO CHEST PE PROTOCOL INDICATIONS: Hemoptysis TECHNIQUE: After the administration of intravenous contrast, 2 mm thick sections acquired from the pulmonary apices to the posterior costophrenic angles. 3-dimensional maximum intensity projection (MIP) coronal and sagittal reformats were then acquired through the thorax. For radiation dose reduction, the following was used: automated exposure control, adjustment of mA and/or kV according to patient size. COMPARISON: None. FINDINGS: Image quality: Diagnostic. Pulmonary arteries: Multiple small pulmonary emboli are evident within the bilateral lungs. These emboli are noted to partially narrow the origins of the left upper and left lower pulmonary arterial branches. Smaller segmental emboli are seen within the right sided pulmonary arteries. No large saddle embolism is evident. The main pulmonary arterial trunk is not enlarged. Lungs and pleura: Prominent emphysematous changes are diffusely evident throughout the lungs, which is more pronounced within the lung bases. Prominent bronchial wall thickening within the bilateral lung bases is also present. Scattered areas of bronchiectasis and rounded areas of increased density within the lung bases are present. No lobar consolidation, effusion, or pneumothorax is evident. Areas of basilar scarring are present. There is no lung mass or definitive pulmonary nodule. Mediastinum: Heart size is normal, without pericardial effusion. Borderline prominent mediastinal and hilar lymph nodes are identified. There may be esophageal varices. Thoracic aorta is normal in caliber and enhancement. Esophagus is normal in caliber, without hiatal hernia. Bones and chest wall: No suspicious bony lesions. Ribs and thoracic spine appear intact throughout. Thyroid gland is not enlarged or inflamed. No axillary or supraclavicular adenopathy. Abdomen: Visualized upper abdominal solid organs appear normal in the early arterial phase of enhancement. IMPRESSION: 1. Multiple bilateral pulmonary emboli are evident (small to moderate degree of embolic load). 2. Severe basilar predominant emphysematous changes of the lungs are nonspecific, but highly unusual for the patient's age. Asthma is felt to be an unlikely cause for this appearance, but cannot be completely excluded. Please correlate clinically for other chronic pulmonary diseases, such as alpha-1 antitrypsin deficiency or potentially pulmonary Langerhans cell histiocytosis. 3. Prominent bronchiectasis within the bilateral infrahilar regions with questionable areas of either focal bronchiectasis versus early cystic changes within the lungs versus small cavitary lesions. An infectious process should be excluded clinically. Please consider followup CT of the chest in approximately 6-8 weeks. 4. Borderline prominent hilar and mediastinal lymph nodes. 5. Nonspecific prominence of the wall of the esophagus. Please correlate clinically to exclude esophagitis. 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 Note: Findings were discussed with Josr Peters at 1340 hours (PST) on 07/21/18. Dictated by: Michael Marrero M.D. on 07/21/2018 at 12:34 Approved by: Michael Marrero M.D. on 07/21/2018 at 12:48
[2018-07-21 13:00] LABS: Prothrombin Time 11.7 SECONDS (10.1-12.7)
[2018-07-21 13:04] LABS: Alanine Aminotransferase 53 IU/L (21-72); Albumin 4.5 g/dL (3.5-5.0); Albumin Globulin Ratio 1.7 (1.0-2.8); Alkaline Phosphatase 68 U/L (38-126); Aspartate Aminotransferase 32 IU/L (17-59); BUN Creatinine Ratio 17.1 (6-22); Bilirubin Total 0.4 mg/dL (0.2-1.3); Blood Urea Nitrogen 12 mg/dL (9-20); Calcium 9.3 mg/dL (8.4-10.2); Carbon Dioxide 28 mmol/L (22-32); Chloride 102 mmol/L (98-107); Estimated Glomerular Filt Rate > 60.0 mL/min (>60); Globulin 2.7 g/dL (1.7-4.1); Glucose 94 mg/dL (70-100); HEMOLYSIS < 15 (0-50); Potassium 4.3 mmol/L (3.4-5.1); Sodium 139 mmol/L (137-145); Total Protein 7.2 g/dL (6.3-8.2)
[2018-07-21 13:07] LABS: Add Manual Diff / Slide Review NO; Basophils Absolute Auto 0 /uL (0-100); Basophils Percent Auto 0.4 % (0-2); Eosinophils Absolute Auto 0 /uL (0-450); Eosinophils Percent Auto 0.1 % (2-4); Hematocrit 41.6 % (41-53); Hemoglobin 13.9 g/dL (13.5-17.5); Lymphocytes Absolute Auto 1900 /uL (1100-4500); Lymphocytes Percent Auto 19.3 % (25-40); Mean Corpuscular HGB Conc 33.5 % (30-36); Mean Corpuscular Hemoglobin 30.5 PG (26-34); Mean Corpuscular Volume 91.1 fL (80-100); Monocytes Absolute Auto 700 /uL (0-900); Monocytes Percent Auto 6.6 % (3-14); Neutrophils Absolute Auto 7300 /uL (1500-7000); Neutrophils Percent Auto 73.6 % (50-75); Platelet Count 277 X10^3/uL (150-400); Red Blood Cell Count 4.57 X10^6/uL (4.5-5.9)
--- NOTE | 2018-07-21 13:46 | ED_ITS ---
HPI - URI/Sore Throat <MUSTAPHA Braun - Last Filed: 07/21/18 22:05> General Chief Complaint: Upper Respiratory Symptoms Stated Complaint: coughing up blood Time Seen by Provider: 07/21/18 12:13 Source: patient Mode of arrival: ambulatory Limitations: no limitations History of Present Illness HPI Narrative: 33-year-old male with history of asthma that is a nonsmoker here for complaint of hemoptysis over the the past 3-4 days. He reports that he has had 4-6 episodes of hemoptysis daily for the past several days. No chest pain. He denies any fevers. No recent travel. He denies any exposure to TB. No fevers no chills. No shortness of breath. He does report having a cough over th is is not new to him due to his asthma he states. He is able to speak full sentences. The denies any other concerns or complaints at this timeframe. Complaint: other Related Data Home Medications Medication Instructions Recorded Confirmed ibuprofen 400 mg PO Q4-6H PRN 07/21/18 07/21/18 mometasone-formoterol 1 puff INHALATION BID 07/21/18 07/21/18 zafirlukast 20 mg PO BID 07/21/18 07/21/18 Previous Rx's Medication Instructions Recorded pantoprazole 40 mg PO BID #1 tab 07/23/18 sumatriptan succinate [Imitrex] 100 mg PO PRN PRN #1 tab 07/23/18 warfarin [Coumadin] 5 mg PO 1700 #1 tab 07/23/18 Allergies Allergy/AdvReac Type Severity Reaction Status Date / Time No Known Drug Allergies Allergy Verified 07/21/18 10:31 Review of Systems <MUSTAPHA Braun - Last Filed: 07/21/18 22:05> Constitutional Denies chills, Denies fever(s), Denies lethargy and Denies weakness Eyes Denies change in vision, Denies eye discharge, Denies irritation and Denies loss of vision ENT Ears, Nose, Mouth, and Throat: Denies change in voice, Denies neck pain, Denies sore throat and Denies throat swelling Cardiovascular Denies chest pain, Denies irregular heart rhythm, Denies lightheadedness, Denies palpitations and Denies orthopnea Respiratory Denies wheezing Comments: Hemoptysis Musculoskeletal Denies neck pain Integumentary/Breasts Denies pruritus, Denies erythema, Denies rash and Denies wounds Neurologic Denies loss of vision and Denies weakness Endocrine Denies palpitations Hematologic/Lymphatic Denies easy bruising Allergic/Immunologic Denies urticaria, Denies throat swelling and Denies wheezing PFSH <MUSTAPHA Braun - Last Filed: 07/21/18 22:05> Medical History Asthma (Acute) GERD (gastroesophageal reflux disease) (Acute) History of alcohol abuse (Acute) Surgical History No history of previous surgery (Acute) Social History household members: spouse Smoking Status: Never smoker Social History household members: spouse Smoking Status: Never smoker Exam <MUSTAPHA Braun - Last Filed: 07/21/18 22:05> Initial Vital Signs Initial Vital Signs: Vital Signs Temperature 98.9 F 07/21/18 10:26 Pulse Rate 83 07/21/18 10:26 Respiratory Rate 18 07/21/18 10:26 Blood Pressure 117/65 07/21/18 10:26 Pulse Oximetry 98 07/21/18 10:26 Const General: cooperative and well developed Nutritional Appearance: well nourished Orientation: alert, awake, oriented x3 and not confused [facility] Mouth: oral mucosae normal and moist mucous membranes Throat: posterior oropharynx normal Eyes Conjunctivae: conjunctivae normal Sclera: sclerae normal Pupils: PERRL EOM: EOM intact bilaterally Chest Chest: normal inspection of the chest Resp Effort & Inspection: normal respiratory effort, able to speak in complete sentences, no respiratory distress and no use of accessory muscles Auscultation: clear to auscultation bilaterally, no rales, no rhonchi and no wheezes Cardio Rate: regular rate Rhythm: regular rhythm Heart Sounds: no click, no gallops, no murmurs and no rubs Pulses: normal peripheral pulses Skin General: no rashes or lesions noted, No jaundice and No petechiae Neuro General: alert, oriented x3, gait normal and no focal motor deficits Speech: speech normal <Rosanna C Mank, DO - Last Filed: 07/25/18 02:34> Initial Vital Signs Initial Vital Signs: Vital Signs Temperature 98.9 F 07/21/18 10:26 Pulse Rate 83 07/21/18 10:26 Respiratory Rate 18 07/21/18 10:26 Blood Pressure 117/65 07/21/18 10:26 Pulse Oximetry 98 07/21/18 10:26 Scores <MUSTAPHA Braun - Last Filed: 07/21/18 22:05> Wells' Criteria for PE Clinical signs and symptoms of PE: No PE is #1 Dx or equally likely: No Heart rate > 100: No Immobilization at least 3 days or surg in previous 4 weeks: No History of PE or DVT: No Hemoptysis: Yes Malignancy w/Treatment within 6 months or palliative: No Leroy' PE Score total: 1 Course <MUSTAPHA Braun - Last Filed: 07/21/18 22:05> Orders Ordered: Discontinued Medications Acetaminophen (Tylenol) 650 mg PO Q6HR PRN PRN Reason: Headache Last Admin: 07/22/18 11:08 Dose: 650 mg Admin: 07/21/18 22:31 Dose: 650 mg Acetaminophen/Butalbital/Caffeine (Fioricet) 1 each PO Q4HR PRN PRN Reason: Headache Last Admin: 07/23/18 11:35 Dose: 1 each Admin: 07/22/18 09:37 Dose: 1 each Hydrocodone Bitart/Acetaminophen ([place] 5/325) 1 tab PO NOW ONE Stop: 07/21/18 15:47 Last Admin: 07/21/18 15:49 Dose: 1 tab Heparin Sodium (Porcine) (Heparin) 5,000 unit 80 unit/kg (5000 unit) IV NOW ONE Stop: 07/21/18 14:05 Last Admin: 07/21/18 14:11 Dose: 5,000 unit Heparin Sodium (Porcine) (Heparin) 2,000 unit IV NOW ONE Stop: 07/21/18 22:46 Last Admin: 07/22/18 00:13 Dose: 2,000 unit Heparin Sodium (Porcine) (Heparin) 2,000 unit IV NOW ONE Stop: 07/22/18 12:39 Last Admin: 07/22/18 12:51 Dose: 2,000 unit Heparin Sodium/Dextrose (Heparin Drip) 25,000 unit in 500 mls @ 22.698 mls/hr IV CONT FLOR; Protocol Last Admin: 07/23/18 12:18 Dose: 17.45 units/kg/hr, 22 mls/hr Titration: 07/23/18 11:30 Dose: 17.45 units/kg/hr, 22 mls/hr Admin: 07/22/18 12:46 Dose: 17.45 units/kg/hr, 22 mls/hr Titration: 07/22/18 12:46 Dose: 15.86 units/kg/hr, 20 mls/hr Titration: 07/22/18 05:08 Dose: 15.86 units/kg/hr, 20 mls/hr Admin: 07/21/18 14:43 Dose: 18 units/kg/hr, 22.698 mls/hr Sodium Chloride (Normal Saline 0.9%) 1,000 mls @ 75 mls/hr IV CONT FLOR Stop: 07/23/18 11:49 Last Infusion: 07/23/18 11:37 Dose: 0 mls/hr Admin: 07/22/18 23:00 Dose: 75 mls/hr Influenza Virus Vaccine (Flu Vaccine) 0.5 ml IM .ONCE ONE Stop: 07/22/18 09:01 Last Admin: 07/22/18 08:58 Dose: 0.5 ml Mometasone- Formoterol (Dulera) 1 Puff 1 puff INHALATION BID [facility] Last Admin: 07/22/18 12:46 Dose: Not Given Admin: 07/22/18 09:01 Dose: Not Given Mometasone- Formoterol (Dulera) 1 Puff 1 puff INHALATION RTBID [facility] Last Admin: 07/23/18 05:42 Dose: 1 puff Admin: 07/22/18 20:32 Dose: 1 puff Admin: 07/22/18 09:40 Dose: 1 puff Non-Formulary Medication (Patient's Own Medication) 0 each PO DAILY PRN PRN Reason: Home medication Pantoprazole Sodium (Protonix) 40 mg IV BID [facility] Last Admin: 07/22/18 00:52 Dose: 40 mg Pantoprazole Sodium (Protonix) 40 mg PO BID [facility] Last Admin: 07/23/18 09:11 Dose: 40 mg Admin: 07/22/18 22:04 Dose: 40 mg Admin: 07/22/18 08:58 Dose: 40 mg Sodium Chloride (Normal Saline 0.9% Flush) 10 ml IV PRN PRN PRN Reason: Flush Sumatriptan Succinate (Imitrex) 100 mg PO PRN PRN PRN Reason: Headache Last Admin: 07/22/18 19:15 Dose: 100 mg Admin: 07/22/18 17:12 Dose: 100 mg Warfarin Sodium (Coumadin) 5 mg PO 1700 [facility] Last Admin: 07/22/18 19:08 Dose: 5 mg Zafirlukast (Accolate) 20 mg PO BID [facility] Last Admin: 07/23/18 05:45 Dose: 20 mg Admin: 07/22/18 20:32 Dose: 20 mg Admin: 07/22/18 08:58 Dose: 20 mg Admin: 07/22/18 00:09 Dose: Not Given Vital Signs - 8 hr 07/21/18 14:21 07/21/18 14:30 07/21/18 15:00 Temperature Pulse Rate 80 71 74 Respiratory Rate 14 15 14 Blood Pressure Blood Pressure [Left Arm] 117/63 122/69 113/67 Pulse Oximetry 98 100 100 07/21/18 16:19 07/21/18 16:43 07/21/18 16:55 Temperature 97.6 F Pulse Rate 70 69 62 Respiratory Rate 16 16 18 Blood Pressure 103/59 L 129/54 L Blood Pressure [Left Arm] 124/56 L Pulse Oximetry 97 100 97 07/21/18 20:31 07/21/18 21:58 Temperature 97.7 F Pulse Rate 56 L Respiratory Rate 18 Blood Pressure 115/52 L Blood Pressure [Left Arm] Pulse Oximetry 97 <Rosanna Alexis DO - Last Filed: 07/25/18 02:34> Orders Ordered: Discontinued Medications Acetaminophen (Tylenol) 650 mg PO Q6HR PRN PRN Reason: Headache Last Admin: 07/22/18 11:08 Dose: 650 mg Admin: 07/21/18 22:31 Dose: 650 mg Acetaminophen/Butalbital/Caffeine (Fioricet) 1 each PO Q4HR PRN PRN Reason: Headache Last Admin: 07/23/18 11:35 Dose: 1 each Admin: 07/22/18 09:37 Dose: 1 each Hydrocodone Bitart/Acetaminophen ([place] 5/325) 1 tab PO NOW ONE Stop: 07/21/18 15:47 Last Admin: 07/21/18 15:49 Dose: 1 tab Heparin Sodium (Porcine) (Heparin) 5,000 unit 80 unit/kg (5000 unit) IV NOW ONE Stop: 07/21/18 14:05 Last Admin: 07/21/18 14:11 Dose: 5,000 unit Heparin Sodium (Porcine) (Heparin) 2,000 unit IV NOW ONE Stop: 07/21/18 22:46 Last Admin: 07/22/18 00:13 Dose: 2,000 unit Heparin Sodium (Porcine) (Heparin) 2,000 unit IV NOW ONE Stop: 07/22/18 12:39 Last Admin: 07/22/18 12:51 Dose: 2,000 unit Heparin Sodium/Dextrose (Heparin Drip) 25,000 unit in 500 mls @ 22.698 mls/hr IV CONT FLOR; Protocol Last Admin: 07/23/18 12:18 Dose: 17.45 units/kg/hr, 22 mls/hr Titration: 07/23/18 11:30 Dose: 17.45 units/kg/hr, 22 mls/hr Admin: 07/22/18 12:46 Dose: 17.45 units/kg/hr, 22 mls/hr Titration: 07/22/18 12:46 Dose: 15.86 units/kg/hr, 20 mls/hr Titration: 07/22/18 05:08 Dose: 15.86 units/kg/hr, 20 mls/hr Admin: 07/21/18 14:43 Dose: 18 units/kg/hr, 22.698 mls/hr Sodium Chloride (Normal Saline 0.9%) 1,000 mls @ 75 mls/hr IV CONT FLOR Stop: 07/23/18 11:49 Last Infusion: 07/23/18 11:37 Dose: 0 mls/hr Admin: 07/22/18 23:00 Dose: 75 mls/hr Influenza Virus Vaccine (Flu Vaccine) 0.5 ml IM .ONCE ONE Stop: 07/22/18 09:01 Last Admin: 07/22/18 08:58 Dose: 0.5 ml Mometasone- Formoterol (Dulera) 1 Puff 1 puff INHALATION BID [facility] Last Admin: 07/22/18 12:46 Dose: Not Given Admin: 07/22/18 09:01 Dose: Not Given Mometasone- Formoterol (Dulera) 1 Puff 1 puff INHALATION RTBID [facility] Last Admin: 07/23/18 05:42 Dose: 1 puff Admin: 07/22/18 20:32 Dose: 1 puff Admin: 07/22/18 09:40 Dose: 1 puff Non-Formulary Medication (Patient's Own Medication) 0 each PO DAILY PRN PRN Reason: Home medication Pantoprazole Sodium (Protonix) 40 mg IV BID [facility] Last Admin: 07/22/18 00:52 Dose: 40 mg Pantoprazole Sodium (Protonix) 40 mg PO BID [facility] Last Admin: 07/23/18 09:11 Dose: 40 mg Admin: 07/22/18 22:04 Dose: 40 mg Admin: 07/22/18 08:58 Dose: 40 mg Sodium Chloride (Normal Saline 0.9% Flush) 10 ml IV PRN PRN PRN Reason: Flush Sumatriptan Succinate (Imitrex) 100 mg PO PRN PRN PRN Reason: Headache Last Admin: 07/22/18 19:15 Dose: 100 mg Admin: 07/22/18 17:12 Dose: 100 mg Warfarin Sodium (Coumadin) 5 mg PO 1700 [facility] Last Admin: 07/22/18 19:08 Dose: 5 mg Zafirlukast (Accolate) 20 mg PO BID [facility] Last Admin: 07/23/18 05:45 Dose: 20 mg Admin: 07/22/18 20:32 Dose: 20 mg Admin: 07/22/18 08:58 Dose: 20 mg Admin: 07/22/18 00:09 Dose: Not Given Vital Signs - 8 hr 07/21/18 14:21 07/21/18 14:30 07/21/18 15:00 Temperature Pulse Rate 80 71 74 Respiratory Rate 14 15 14 Blood Pressure Blood Pressure [Left Arm] 117/63 122/69 113/67 Pulse Oximetry 98 100 100 07/21/18 16:19 07/21/18 16:43 07/21/18 16:55 Temperature 97.6 F Pulse Rate 70 69 62 Respiratory Rate 16 16 18 Blood Pressure 103/59 L 129/54 L Blood Pressure [Left Arm] 124/56 L Pulse Oximetry 97 100 97 07/21/18 20:31 07/21/18 21:58 Temperature 97.7 F Pulse Rate 56 L Respiratory Rate 18 Blood Pressure 115/52 L Blood Pressure [Left Arm] Pulse Oximetry 97 MDM - URI/Sore Throat <MUSTAPHA Braun - Last Filed: 07/21/18 22:05> Lab Data Result diagrams: 07/23/18 05:30 07/23/18 05:30 Lab Results 07/21/18 07/21/18 07/21/18 Range/Units 12:45 12:45 12:45 WBC 10.0 (4.5-11.0) X10^3/uL RBC 4.57 (4.5-5.9) X10^6/uL Hgb 13.9 (13.5-17.5) g/dL Hct 41.6 (41-53) % MCV 91.1 (80-100) fL MCH 30.5 (26-34) PG MCHC 33.5 (30-36) % RDW 13.0 (11.6-14.8) % Plt Count 277 (150-400) X10^3/uL Neut % (Auto) 73.6 (50-75) % Lymph % (Auto) 19.3 L (25-40) % [place] % (Auto) 6.6 (3-14) % Eos % (Auto) 0.1 L (2-4) % Baso % (Auto) 0.4 (0-2) % Neut # (Auto) 7300 H (1890-3017) /uL Lymph # (Auto) 1900 (6057-8547) /uL [place] # (Auto) 700 (0-900) /uL Eos # (Auto) 0 (0-450) /uL Baso # (Auto) 0 (0-100) /uL PT 11.7 (10.1-12.7) SECONDS INR 1.0 (0.9-1.3) APTT 28 (26.4-36.2) SECONDS Sodium 139 (137-145) mmol/L Potassium 4.3 (3.4-5.1) mmol/L Chloride 102 (98-107) mmol/L Carbon Dioxide 28 (22-32) mmol/L BUN 12 (9-20) mg/dL Creatinine 0.70 (0.66-1.25) mg/dL Estimated GFR > 60.0 (>60) mL/min BUN/Creatinine Ratio 17.1 (6-22) Glucose 94 (70-100) mg/dL Calcium 9.3 (8.4-10.2) mg/dL Total Bilirubin 0.4 (0.2-1.3) mg/dL Conjugated Bilirubin (0.0-0.3) md/dL Unconjugated Bilirubin (0.0-1.1) mg/dL AST 32 (17-59) IU/L ALT 53 (21-72) IU/L Alkaline Phosphatase 68 (38-126) U/L Total Protein 7.2 (6.3-8.2) g/dL Albumin 4.5 (3.5-5.0) g/dL Globulin 2.7 (1.7-4.1) g/dL Albumin/Globulin Ratio 1.7 (1.0-2.8) Syqwu-4-Ukvhmrpzrkc (83-199) mg/dL Procalcitonin (<0.5) ng/mL 07/21/18 07/21/18 07/21/18 Range/Units 21:18 23:10 23:10 WBC (4.5-11.0) X10^3/uL RBC (4.5-5.9) X10^6/uL Hgb (13.5-17.5) g/dL Hct (41-53) % MCV (80-100) fL MCH (26-34) PG MCHC (30-36) % RDW (11.6-14.8) % Plt Count (150-400) X10^3/uL Neut % (Auto) (50-75) % Lymph % (Auto) (25-40) % [place] % (Auto) (3-14) % Eos % (Auto) (2-4) % Baso % (Auto) (0-2) % Neut # (Auto) (5030-9899) /uL Lymph # (Auto) (2615-8116) /uL [place] # (Auto) (0-900) /uL Eos # (Auto) (0-450) /uL Baso # (Auto) (0-100) /uL PT (10.1-12.7) SECONDS INR (0.9-1.3) APTT 58 H D (26.4-36.2) SECONDS Sodium (137-145) mmol/L Potassium (3.4-5.1) mmol/L Chloride (98-107) mmol/L Carbon Dioxide (22-32) mmol/L BUN (9-20) mg/dL Creatinine (0.66-1.25) mg/dL Estimated GFR (>60) mL/min BUN/Creatinine Ratio (6-22) Glucose (70-100) mg/dL Calcium (8.4-10.2) mg/dL Total Bilirubin 0.3 (0.2-1.3) mg/dL Conjugated Bilirubin 0.0 (0.0-0.3) md/dL Unconjugated Bilirubin 0.1 (0.0-1.1) mg/dL AST 28 (17-59) IU/L ALT 47 (21-72) IU/L Alkaline Phosphatase 66 (38-126) U/L Total Protein 6.6 (6.3-8.2) g/dL Albumin 4.0 (3.5-5.0) g/dL Globulin 2.6 (1.7-4.1) g/dL Albumin/Globulin Ratio 1.5 (1.0-2.8) Ktscy-3-Dmhtzdiqqtv 115 (83-199) mg/dL Procalcitonin (<0.5) ng/mL 07/22/18 07/22/18 07/22/18 Range/Units 04:33 04:33 04:33 WBC 7.3 (4.5-11.0) X10^3/uL RBC 4.61 (4.5-5.9) X10^6/uL Hgb 14.1 (13.5-17.5) g/dL Hct 42.2 (41-53) % MCV 91.4 (80-100) fL MCH 30.6 (26-34) PG MCHC 33.5 (30-36) % RDW 12.9 (11.6-14.8) % Plt Count 254 (150-400) X10^3/uL Neut % (Auto) 50.6 D (50-75) % Lymph % (Auto) 38.1 (25-40) % [place] % (Auto) 8.8 (3-14) % Eos % (Auto) 2.0 (2-4) % Baso % (Auto) 0.5 (0-2) % Neut # (Auto) 3700 (0795-6541) /uL Lymph # (Auto) 2800 (5442-4746) /uL [place] # (Auto) 600 (0-900) /uL Eos # (Auto) 100 (0-450) /uL Baso # (Auto) 0 (0-100) /uL PT (10.1-12.7) SECONDS INR (0.9-1.3) APTT 72 H D (26.4-36.2) SECONDS Sodium (137-145) mmol/L Potassium (3.4-5.1) mmol/L Chloride (98-107) mmol/L Carbon Dioxide (22-32) mmol/L BUN (9-20) mg/dL Creatinine (0.66-1.25) mg/dL Estimated GFR (>60) mL/min BUN/Creatinine Ratio (6-22) Glucose (70-100) mg/dL Calcium (8.4-10.2) mg/dL Total Bilirubin (0.2-1.3) mg/dL Conjugated Bilirubin (0.0-0.3) md/dL Unconjugated Bilirubin (0.0-1.1) mg/dL AST (17-59) IU/L ALT (21-72) IU/L Alkaline Phosphatase (38-126) U/L Total Protein (6.3-8.2) g/dL Albumin (3.5-5.0) g/dL Globulin (1.7-4.1) g/dL Albumin/Globulin Ratio (1.0-2.8) Ygneu-2-Aogvlswxkmk (83-199) mg/dL Procalcitonin < 0.05 (<0.5) ng/mL 07/22/18 07/22/18 07/22/18 Range/Units 10:30 18:43 18:43 WBC 8.3 (4.5-11.0) X10^3/uL RBC 4.65 (4.5-5.9) X10^6/uL Hgb 14.3 (13.5-17.5) g/dL Hct 42.5 (41-53) % MCV 91.3 (80-100) fL MCH 30.8 (26-34) PG MCHC 33.7 (30-36) % RDW 12.9 (11.6-14.8) % Plt Count 272 (150-400) X10^3/uL Neut % (Auto) 60.0 (50-75) % Lymph % (Auto) 29.1 (25-40) % [place] % (Auto) 8.9 (3-14) % Eos % (Auto) 1.5 L (2-4) % Baso % (Auto) 0.5 (0-2) % Neut # (Auto) 5000 (2232-0683) /uL Lymph # (Auto) 2400 (3424-6818) /uL [place] # (Auto) 700 (0-900) /uL Eos # (Auto) 100 (0-450) /uL Baso # (Auto) 0 (0-100) /uL PT (10.1-12.7) SECONDS INR (0.9-1.3) APTT 56 H D 75 H* D (26.4-36.2) SECONDS Sodium (137-145) mmol/L Potassium (3.4-5.1) mmol/L Chloride (98-107) mmol/L Carbon Dioxide (22-32) mmol/L BUN (9-20) mg/dL Creatinine (0.66-1.25) mg/dL Estimated GFR (>60) mL/min BUN/Creatinine Ratio (6-22) Glucose (70-100) mg/dL Calcium (8.4-10.2) mg/dL Total Bilirubin (0.2-1.3) mg/dL Conjugated Bilirubin (0.0-0.3) md/dL Unconjugated Bilirubin (0.0-1.1) mg/dL AST (17-59) IU/L ALT (21-72) IU/L Alkaline Phosphatase (38-126) U/L Total Protein (6.3-8.2) g/dL Albumin (3.5-5.0) g/dL Globulin (1.7-4.1) g/dL Albumin/Globulin Ratio (1.0-2.8) Vxnww-8-Jrddaocmicy (83-199) mg/dL Procalcitonin (<0.5) ng/mL 07/23/18 07/23/18 07/23/18 Range/Units 00:30 05:30 05:30 WBC 7.8 (4.5-11.0) X10^3/uL RBC 4.65 (4.5-5.9) X10^6/uL Hgb 14.3 (13.5-17.5) g/dL Hct 42.6 (41-53) % MCV 91.6 (80-100) fL MCH 30.7 (26-34) PG MCHC 33.5 (30-36) % RDW 13.2 (11.6-14.8) % Plt Count 255 (150-400) X10^3/uL Neut % (Auto) 62.4 (50-75) % Lymph % (Auto) 25.3 (25-40) % [place] % (Auto) 10.0 (3-14) % Eos % (Auto) 1.8 L (2-4) % Baso % (Auto) 0.5 (0-2) % Neut # (Auto) 4900 (1876-8735) /uL Lymph # (Auto) 2000 (9234-6462) /uL [place] # (Auto) 800 (0-900) /uL Eos # (Auto) 100 (0-450) /uL Baso # (Auto) 0 (0-100) /uL PT (10.1-12.7) SECONDS INR (0.9-1.3) APTT 70 H D (26.4-36.2) SECONDS Sodium (137-145) mmol/L Potassium (3.4-5.1) mmol/L Chloride (98-107) mmol/L Carbon Dioxide (22-32) mmol/L BUN (9-20) mg/dL Creatinine (0.66-1.25) mg/dL Estimated GFR (>60) mL/min BUN/Creatinine Ratio (6-22) Glucose (70-100) mg/dL Calcium (8.4-10.2) mg/dL Total Bilirubin (0.2-1.3) mg/dL Conjugated Bilirubin (0.0-0.3) md/dL Unconjugated Bilirubin (0.0-1.1) mg/dL AST (17-59) IU/L ALT (21-72) IU/L Alkaline Phosphatase (38-126) U/L Total Protein (6.3-8.2) g/dL Albumin (3.5-5.0) g/dL Globulin (1.7-4.1) g/dL Albumin/Globulin Ratio (1.0-2.8) Mlrhi-1-Emribeiwoog (83-199) mg/dL Procalcitonin < 0.05 (<0.5) ng/mL 07/23/18 07/23/18 Range/Units 05:30 05:30 WBC (4.5-11.0) X10^3/uL RBC (4.5-5.9) X10^6/uL Hgb (13.5-17.5) g/dL Hct (41-53) % MCV (80-100) fL MCH (26-34) PG MCHC (30-36) % RDW (11.6-14.8) % Plt Count (150-400) X10^3/uL Neut % (Auto) (50-75) % Lymph % (Auto) (25-40) % [place] % (Auto) (3-14) % Eos % (Auto) (2-4) % Baso % (Auto) (0-2) % Neut # (Auto) (1289-0912) /uL Lymph # (Auto) (3893-1888) /uL [place] # (Auto) (0-900) /uL Eos # (Auto) (0-450) /uL Baso # (Auto) (0-100) /uL PT 11.8 (10.1-12.7) SECONDS INR 1.0 (0.9-1.3) APTT 66 H D (26.4-36.2) SECONDS Sodium 139 (137-145) mmol/L Potassium 4.3 (3.4-5.1) mmol/L Chloride 105 (98-107) mmol/L Carbon Dioxide 26 (22-32) mmol/L BUN 12 (9-20) mg/dL Creatinine 0.60 L (0.66-1.25) mg/dL Estimated GFR > 60.0 (>60) mL/min BUN/Creatinine Ratio 20.0 (6-22) Glucose 108 H (70-100) mg/dL Calcium 9.3 (8.4-10.2) mg/dL Total Bilirubin (0.2-1.3) mg/dL Conjugated Bilirubin (0.0-0.3) md/dL Unconjugated Bilirubin (0.0-1.1) mg/dL AST (17-59) IU/L ALT (21-72) IU/L Alkaline Phosphatase (38-126) U/L Total Protein (6.3-8.2) g/dL Albumin (3.5-5.0) g/dL Globulin (1.7-4.1) g/dL Albumin/Globulin Ratio (1.0-2.8) Pechw-8-Aoqywjwsshy (83-199) mg/dL Procalcitonin (<0.5) ng/mL Imaging Data Chest x-ray: Radiologist's impression: [address] [address] XRay Report Signed Patient: Willian Abernathy [facility]#: [id number] : 1985Acct:[id number] Age/Sex: 33 / MDate of Service: 07/21/18 Loc: ED Accession Number: [id number] Procedure: XR chest 2V Ordering Provider: Rosanna Alexis D.O. PROCEDURE: XR CHEST 2V INDICATIONS: blood in sputum coughing up blood h/o astma, non smoker TECHNIQUE: 2 views of the chest were acquired. COMPARISON: [facility], , CHEST 2 VIEW, 07/31/2011, 1:10. FINDINGS: Surgical changes and devices: None. Lungs and pleura: Lungs are clear. No pleural effusions or pneumothorax. Likely fibrotic changes are seen at the right lung base. Lungs are hyperexpanded. Mediastinum: Mediastinal contours are normal. Heart size is normal. Bones and chest wall: No suspicious bony abnormalities. Soft tissues appear unremarkable. IMPRESSION: Hyperexpanded lungs, without an acute cardiopulmonary process identified. For this patient's presenting history of hemoptysis, please consider a dedicated chest CT with contrast for further evaluation. Dictated by: Grant South M.D. on 07/21/2018 at 10:13 Approved by: Grant South M.D. on 07/21/2018 at 10:14 CT scan - chest: Radiologist's impression: [address] [address] [address] Scan Report Signed Patient: Willian Abernathy [facility]#: [id number] : 1985Acct:[id number] Age/Sex: 33 / MDate of Service: 07/21/18 Loc: ED Accession Number: [id number] Procedure: CT angio chest PE protocol Ordering Provider: Josr Peters PROCEDURE: CT ANGIO CHEST PE PROTOCOL INDICATIONS: Hemoptysis TECHNIQUE: After the administration of intravenous contrast, 2 mm thick sections acquired from the pulmonary apices to the posterior costophrenic angles. 3-dimensional maximum intensity projection (MIP) coronal and sagittal reformats were then acquired through the thorax. For radiation dose reduction, the following was used: automated exposure control, adjustment of mA and/or kV according to patient size. COMPARISON: None. FINDINGS: Image quality: Diagnostic. Pulmonary arteries: Multiple small pulmonary emboli are evident within the hima ateral lungs. These emboli are noted to partially narrow the origins of the left upper and left lower pulmonary arterial branches. Smaller segmental emboli are seen within the right sided pulmonary arteries. No large saddle embolism is evident. The main pulmonary arterial trunk is not enlarged. Lungs and pleura: Prominent emphysematous changes are diffusely evident throughout the lungs, which is more pronounced within the lung bases. Prominent bronchial wall thickening within the bilateral lung bases is also present. Scattered areas of bronchiectasis and rounded areas of increased density within the lung bases are present. No lobar consolidation, effusion, or pneumothorax is evident. Areas of basilar scarring are present. There is no lung mass or definitive pulmonary nodule. Mediastinum: Heart size is normal, without pericardial effusion. Borderline prominent mediastinal and hilar lymph nodes are identified. There may be esophageal varices. Thoracic aorta is normal in caliber and enhancement. Esophagus is normal in caliber, without hiatal hernia. Bones and chest wall: No suspicious bony lesions. Ribs and thoracic spine appear intact throughout. Thyroid gland is not enlarged or inflamed. No axillary or supraclavicular adenopathy. Abdomen: Visualized upper abdominal solid organs appear normal in the early arterial phase of enhancement. IMPRESSION: 1. Multiple bilateral pulmonary emboli are evident (small to moderate degree of embolic load). 2. Severe basilar predominant emphysematous changes of the lungs are nonspecific, but highly unusual for the patient's age. Asthma is felt to be an unlikely cause for this appearance, but cannot be completely excluded. Please correlate clinically for other chronic pulmonary diseases, such as alpha-1 antitrypsin deficiency or potentially pulmonary Langerhans cell histiocytosis. 3. Prominent bronchiectasis within the bilateral infrahilar regions with questionable areas of either focal bronchiectasis versus early cystic changes within the lungs versus small cavitary lesions. An infectious process should be excluded clinically. Please consider followup CT of the chest in approximately 6-8 weeks. 4. Borderline prominent hilar and mediastinal lymph nodes. 5. Nonspecific prominence of the wall of the esophagus. Please correlate clinically to exclude esophagitis. 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 Note: Findings were discussed with Josr Peters at 1340 hours (PST) on 07/21/18. Dictated by: Michael Marrero M.D. on 07/21/2018 at 12:34 Approved by: Michael Marrero M.D. on 07/21/2018 at 12:48 ECG Data Interpretation: EKG shows normal sinus rhythm with no ST elevation no depression. No ectopy. Ventricular rate of 61. Pr interval of 160. QRS duration 98. QTC 371. S1 Q3 T3 negative MDM Narrative Medical decision making narrative: CBC was obtained and was unremarkable. Chem panel was obtained and was unremarkable. INR was obtained and was normal. EKG shows sinus rhythm with no ST elevation or depression. No ectopy. S1 q3 T3 negative. Chest x-ray was obtained was negative for any acute findings. PE protocol CT was then obtained and shows multiple small bilateral pulmonary emboli. Patient with no prior history of PE or blood clots. He denies any recent travel or immobilization. He has no shortness of breath. No chest pain. Chest CT also shows significant bibasilar findings consistent with emphysema. Recommend further workup with pulmonology to rule out alpha 1 antitrypsin deficiency and Langerhans cell histiocytosis. He was given a heparin and heparin drip started in the emergency room. He is admitted for continued observation. Dr. Cole hospitalist accepted patient <Rosanna Alexis, - Last Filed: 07/25/18 02:34> Lab Data Lab Results 07/21/18 07/21/18 07/21/18 Range/Units 12:45 12:45 12:45 WBC 10.0 (4.5-11.0) X10^3/uL RBC 4.57 (4.5-5.9) X10^6/uL Hgb 13.9 (13.5-17.5) g/dL Hct 41.6 (41-53) % MCV 91.1 (80-100) fL MCH 30.5 (26-34) PG MCHC 33.5 (30-36) % RDW 13.0 (11.6-14.8) % Plt Count 277 (150-400) X10^3/uL Neut % (Auto) 73.6 (50-75) % Lymph % (Auto) 19.3 L (25-40) % [place] % (Auto) 6.6 (3-14) % Eos % (Auto) 0.1 L (2-4) % Baso % (Auto) 0.4 (0-2) % Neut # (Auto) 7300 H (0909-1229) /uL Lymph # (Auto) 1900 (5977-9201) /uL [place] # (Auto) 700 (0-900) /uL Eos # (Auto) 0 (0-450) /uL Baso # (Auto) 0 (0-100) /uL PT 11.7 (10.1-12.7) SECONDS INR 1.0 (0.9-1.3) APTT 28 (26.4-36.2) SECONDS Sodium 139 (137-145) mmol/L Potassium 4.3 (3.4-5.1) mmol/L Chloride 102 (98-107) mmol/L Carbon Dioxide 28 (22-32) mmol/L BUN 12 (9-20) mg/dL Creatinine 0.70 (0.66-1.25) mg/dL Estimated GFR > 60.0 (>60) mL/min BUN/Creatinine Ratio 17.1 (6-22) Glucose 94 (70-100) mg/dL Calcium 9.3 (8.4-10.2) mg/dL Total Bilirubin 0.4 (0.2-1.3) mg/dL Conjugated Bilirubin (0.0-0.3) md/dL Unconjugated Bilirubin (0.0-1.1) mg/dL AST 32 (17-59) IU/L ALT 53 (21-72) IU/L Alkaline Phosphatase 68 (38-126) U/L Total Protein 7.2 (6.3-8.2) g/dL Albumin 4.5 (3.5-5.0) g/dL Globulin 2.7 (1.7-4.1) g/dL Albumin/Globulin Ratio 1.7 (1.0-2.8) Oqryq-1-Ropedvzaaxu (83-199) mg/dL Procalcitonin (<0.5) ng/mL 07/21/18 07/21/18 07/21/18 Range/Units 21:18 23:10 23:10 WBC (4.5-11.0) X10^3/uL RBC (4.5-5.9) X10^6/uL Hgb (13.5-17.5) g/dL Hct (41-53) % MCV (80-100) fL MCH (26-34) PG MCHC (30-36) % RDW (11.6-14.8) % Plt Count (150-400) X10^3/uL Neut % (Auto) (50-75) % Lymph % (Auto) (25-40) % [place] % (Auto) (3-14) % Eos % (Auto) (2-4) % Baso % (Auto) (0-2) % Neut # (Auto) (4113-5104) /uL Lymph # (Auto) (8833-9450) /uL [place] # (Auto) (0-900) /uL Eos # (Auto) (0-450) /uL Baso # (Auto) (0-100) /uL PT (10.1-12.7) SECONDS INR (0.9-1.3) APTT 58 H D (26.4-36.2) SECONDS Sodium (137-145) mmol/L Potassium (3.4-5.1) mmol/L Chloride (98-107) mmol/L Carbon Dioxide (22-32) mmol/L BUN (9-20) mg/dL Creatinine (0.66-1.25) mg/dL Estimated GFR (>60) mL/min BUN/Creatinine Ratio (6-22) Glucose (70-100) mg/dL Calcium (8.4-10.2) mg/dL Total Bilirubin 0.3 (0.2-1.3) mg/dL Conjugated Bilirubin 0.0 (0.0-0.3) md/dL Unconjugated Bilirubin 0.1 (0.0-1.1) mg/dL AST 28 (17-59) IU/L ALT 47 (21-72) IU/L Alkaline Phosphatase 66 (38-126) U/L Total Protein 6.6 (6.3-8.2) g/dL Albumin 4.0 (3.5-5.0) g/dL Globulin 2.6 (1.7-4.1) g/dL Albumin/Globulin Ratio 1.5 (1.0-2.8) Nqnpm-2-Vfgvutqyusq 115 (83-199) mg/dL Procalcitonin (<0.5) ng/mL 07/22/18 07/22/18 07/22/18 Range/Units 04:33 04:33 04:33 WBC 7.3 (4.5-11.0) X10^3/uL RBC 4.61 (4.5-5.9) X10^6/uL Hgb 14.1 (13.5-17.5) g/dL Hct 42.2 (41-53) % MCV 91.4 (80-100) fL MCH 30.6 (26-34) PG MCHC 33.5 (30-36) % RDW 12.9 (11.6-14.8) % Plt Count 254 (150-400) X10^3/uL Neut % (Auto) 50.6 D (50-75) % Lymph % (Auto) 38.1 (25-40) % [place] % (Auto) 8.8 (3-14) % Eos % (Auto) 2.0 (2-4) % Baso % (Auto) 0.5 (0-2) % Neut # (Auto) 3700 (2726-9568) /uL Lymph # (Auto) 2800 (9668-0709) /uL [place] # (Auto) 600 (0-900) /uL Eos # (Auto) 100 (0-450) /uL Baso # (Auto) 0 (0-100) /uL PT (10.1-12.7) SECONDS INR (0.9-1.3) APTT 72 H D (26.4-36.2) SECONDS Sodium (137-145) mmol/L Potassium (3.4-5.1) mmol/L Chloride (98-107) mmol/L Carbon Dioxide (22-32) mmol/L BUN (9-20) mg/dL Creatinine (0.66-1.25) mg/dL Estimated GFR (>60) mL/min BUN/Creatinine Ratio (6-22) Glucose (70-100) mg/dL Calcium (8.4-10.2) mg/dL Total Bilirubin (0.2-1.3) mg/dL Conjugated Bilirubin (0.0-0.3) md/dL Unconjugated Bilirubin (0.0-1.1) mg/dL AST (17-59) IU/L ALT (21-72) IU/L Alkaline Phosphatase (38-126) U/L Total Protein (6.3-8.2) g/dL Albumin (3.5-5.0) g/dL Globulin (1.7-4.1) g/dL Albumin/Globulin Ratio (1.0-2.8) Erhvh-4-Nndajrszitc (83-199) mg/dL Procalcitonin < 0.05 (<0.5) ng/mL 07/22/18 07/22/18 07/22/18 Range/Units 10:30 18:43 18:43 WBC 8.3 (4.5-11.0) X10^3/uL RBC 4.65 (4.5-5.9) X10^6/uL Hgb 14.3 (13.5-17.5) g/dL Hct 42.5 (41-53) % MCV 91.3 (80-100) fL MCH 30.8 (26-34) PG MCHC 33.7 (30-36) % RDW 12.9 (11.6-14.8) % Plt Count 272 (150-400) X10^3/uL Neut % (Auto) 60.0 (50-75) % Lymph % (Auto) 29.1 (25-40) % [place] % (Auto) 8.9 (3-14) % Eos % (Auto) 1.5 L (2-4) % Baso % (Auto) 0.5 (0-2) % Neut # (Auto) 5000 (5228-1224) /uL Lymph # (Auto) 2400 (1314-9099) /uL [place] # (Auto) 700 (0-900) /uL Eos # (Auto) 100 (0-450) /uL Baso # (Auto) 0 (0-100) /uL PT (10.1-12.7) SECONDS INR (0.9-1.3) APTT 56 H D 75 H* D (26.4-36.2) SECONDS Sodium (137-145) mmol/L Potassium (3.4-5.1) mmol/L Chloride (98-107) mmol/L Carbon Dioxide (22-32) mmol/L BUN (9-20) mg/dL Creatinine (0.66-1.25) mg/dL Estimated GFR (>60) mL/min BUN/Creatinine Ratio (6-22) Glucose (70-100) mg/dL Calcium (8.4-10.2) mg/dL Total Bilirubin (0.2-1.3) mg/dL Conjugated Bilirubin (0.0-0.3) md/dL Unconjugated Bilirubin (0.0-1.1) mg/dL AST (17-59) IU/L ALT (21-72) IU/L Alkaline Phosphatase (38-126) U/L Total Protein (6.3-8.2) g/dL Albumin (3.5-5.0) g/dL Globulin (1.7-4.1) g/dL Albumin/Globulin Ratio (1.0-2.8) Lwwiu-8-Vokgapgjcen (83-199) mg/dL Procalcitonin (<0.5) ng/mL 07/23/18 07/23/18 07/23/18 Range/Units 00:30 05:30 05:30 WBC 7.8 (4.5-11.0) X10^3/uL RBC 4.65 (4.5-5.9) X10^6/uL Hgb 14.3 (13.5-17.5) g/dL Hct 42.6 (41-53) % MCV 91.6 (80-100) fL MCH 30.7 (26-34) PG MCHC 33.5 (30-36) % RDW 13.2 (11.6-14.8) % Plt Count 255 (150-400) X10^3/uL Neut % (Auto) 62.4 (50-75) % Lymph % (Auto) 25.3 (25-40) % [place] % (Auto) 10.0 (3-14) % Eos % (Auto) 1.8 L (2-4) % Baso % (Auto) 0.5 (0-2) % Neut # (Auto) 4900 (2643-7622) /uL Lymph # (Auto) 2000 (4296-9434) /uL [place] # (Auto) 800 (0-900) /uL Eos # (Auto) 100 (0-450) /uL Baso # (Auto) 0 (0-100) /uL PT (10.1-12.7) SECONDS INR (0.9-1.3) APTT 70 H D (26.4-36.2) SECONDS Sodium (137-145) mmol/L Potassium (3.4-5.1) mmol/L Chloride (98-107) mmol/L Carbon Dioxide (22-32) mmol/L BUN (9-20) mg/dL Creatinine (0.66-1.25) mg/dL Estimated GFR (>60) mL/min BUN/Creatinine Ratio (6-22) Glucose (70-100) mg/dL Calcium (8.4-10.2) mg/dL Total Bilirubin (0.2-1.3) mg/dL Conjugated Bilirubin (0.0-0.3) md/dL Unconjugated Bilirubin (0.0-1.1) mg/dL AST (17-59) IU/L ALT (21-72) IU/L Alkaline Phosphatase (38-126) U/L Total Protein (6.3-8.2) g/dL Albumin (3.5-5.0) g/dL Globulin (1.7-4.1) g/dL Albumin/Globulin Ratio (1.0-2.8) Wywma-4-Edxkrhyqysi (83-199) mg/dL Procalcitonin < 0.05 (<0.5) ng/mL 07/23/18 07/23/18 Range/Units 05:30 05:30 WBC (4.5-11.0) X10^3/uL RBC (4.5-5.9) X10^6/uL Hgb (13.5-17.5) g/dL Hct (41-53) % MCV (80-100) fL MCH (26-34) PG MCHC (30-36) % RDW (11.6-14.8) % Plt Count (150-400) X10^3/uL Neut % (Auto) (50-75) % Lymph % (Auto) (25-40) % [place] % (Auto) (3-14) % Eos % (Auto) (2-4) % Baso % (Auto) (0-2) % Neut # (Auto) (4194-7210) /uL Lymph # (Auto) (6561-4582) /uL [place] # (Auto) (0-900) /uL Eos # (Auto) (0-450) /uL Baso # (Auto) (0-100) /uL PT 11.8 (10.1-12.7) SECONDS INR 1.0 (0.9-1.3) APTT 66 H D (26.4-36.2) SECONDS Sodium 139 (137-145) mmol/L Potassium 4.3 (3.4-5.1) mmol/L Chloride 105 (98-107) mmol/L Carbon Dioxide 26 (22-32) mmol/L BUN 12 (9-20) mg/dL Creatinine 0.60 L (0.66-1.25) mg/dL Estimated GFR > 60.0 (>60) mL/min BUN/Creatinine Ratio 20.0 (6-22) Glucose 108 H (70-100) mg/dL Calcium 9.3 (8.4-10.2) mg/dL Total Bilirubin (0.2-1.3) mg/dL Conjugated Bilirubin (0.0-0.3) md/dL Unconjugated Bilirubin (0.0-1.1) mg/dL AST (17-59) IU/L ALT (21-72) IU/L Alkaline Phosphatase (38-126) U/L Total Protein (6.3-8.2) g/dL Albumin (3.5-5.0) g/dL Globulin (1.7-4.1) g/dL Albumin/Globulin Ratio (1.0-2.8) Tfvad-6-Wlvfhvnkikr (83-199) mg/dL Procalcitonin (<0.5) ng/mL Discharge Plan Departure Patient Disposition: Admitted As Inpatient Clinical Impression: Pulmonary emboli Qualifiers: Pulmonary embolism type: unspecified Chronicity: acute Acute cor pulmonale presence: with acute cor pulmonale Qualified Code(s): I26.09 - Other pulmonary embolism with acute cor pulmonale Discharge Date/Time: 07/21/18 16:45 Interventions: ED Discharge Assessment Last Done: 07/21/18 16:43 Admit Date/Time: 07/21/18 15:09 Admit Provider: Ofelia Cole <Rosanna Alexis DO - Last Filed: 07/25/18 02:34> Cosign ED Attending Cosignature Attestation: I was immediately available in the department for consultation, case was discussed. This documentation has been reviewed and I agree with assessment and plan. Supervised by Rosanna Alexis DO
[2018-07-21] MEDS: HEPARIN 5,000 UNIT/ML VIAL 5000 UNIT IV (14:11)
[2018-07-21] MEDS: HEPARIN DRIP 25,000 UNIT/500 ML IV.SOLN 22.698 UNIT IV (14:43)
[2018-07-21] MEDS: HYDROCODONE/ACET 5/325 TABLET 1 TAB PO (15:49)
[2018-07-21 18:53] LABS: PTT Partial Thromboplastin Tim 28 SECONDS (26.4-36.2)
--- NOTE | 2018-07-21 19:23 | PC.NURSE ---
Addendum entered by Lisa Vallejo R.N. 07/22/18 00:14: Kassie Donaldson in to see patient tonight. New orders written, lab notified via phone call that she wrote STAT lab orders tonight. PTT drawn at 2117, result 58. Per non-corinary Heparin Drip protocol, a 2000 unit bolus was given at 2230 & Hep drip titrated to 1,000 u/hr or 20 ml/hour (from 900 u/hr), MANAGER OF APPLICATIONS DEVELOPMENT Doreen in room to verify change of dose/titration. Next PTT is ordered stat for 0430, AARTI RN aware. Pt reports headache pain 12/10, 2 Tylenol given. (New order fiorcet unavailable from night pharmacy.) Pt took own meds Dulera & Zafirlukast as neither were available in night pharmacy and meds ordered to start tonight. NOC RN aware that meds need to be sent to pharmacy in the AM to be identified. Pt instructed to call nurse if he coughs up blood or has BM so we can monitor any bleeding closely, pt expressed understanding. Report given to Carlos Enrique BROUSSARD RN. Original Note: Admit note: Patient brought from ER via wheelchair, transferred into bed. He is Ox3, denies headache pain. VS stable, BP 129/54. He denies any pain or nausea. Told admitting RN that he was coughing up mouthfulls of blood at home. He was brought to unit on heparin drip, admitting RN setting baseline drip at 18 u/kg/hr (bolus done in ED.) Per protocol next PTT ordered for 2100. After reviewing CT results I notified charge lpn about them, stating concern for poss? esophageal varicies, risk of bleeding & heparin drip. I asked charge lpn if patient should be in the ICU. I talked to Dr Cole about these things as well, she is aware of CT scan. I asked if patient should be in the ICU. She said she is going off shift & that Ms Mendoza LUCIANO is taking over for her & should see patient soon.
[2018-07-21 21:34] LABS: PTT Partial Thromboplastin Tim 58 SECONDS (26.4-36.2)
--- NOTE | 2018-07-21 21:49 | P.HP_ITS ---
History of Present Illness Date Patient Seen: 07/21/18 Time Patient Seen: 21:43 Chief complaint: coughing up blood Narrative: The patient is a 33-year-old male with PMH of asthma (since childhood, controlled), GERD, PRIOR EtOH abuse (stopped in 2012), recurring headaches, and NSAID dependence. Denies prior history of liver disease, renal disease, thrombosis, autoimmune illness, or blood clotting disorders. Denies prior history of tobacco use, including second hand exposure. Patient presented to the ED out of concern for hemoptysis. Symptoms initially noted on , 07/17/2018. Reports having 6-7 episodes of hemoptysis on Saturday (07/20) and 1 episode on Saturday (07/21). The patient is unable to quantify the degree of hemoptysis; however, according to his description the expectorant does not appear to be large or massive. Does report presence of clots, which only present with initial am cough. Patient has had an isolated similar 1 day event 15 years ago, self-resolved. No formal follow-up taken place at that time. Associated symptoms include dark stools. Patient uses NSAIDs, specifically ibuprofen 220 mg, 3-4 tablets daily, for years. PRIOR history of EtOH dependence. Started drinking at the age of 16, initially a weekend drinker, which progressed to 1/2 gallon every 3 days. Patient exhibited heavy pattern of drinking for 3-4 years, before partaking in an outpatient detox program in 2012. Denies current use of alcohol. Patient has underlying history of asthma, since childhood, which he reports to be well controlled with Dulera and zafirlukast. Follows w/ [facility]. He has chronic productive cough that takes place in the morning after awakening, clear purulence. Denies worsening cough in the past week. Also denies chest pain, pleurisy, dyspnea (rest or w/ exertion), dizziness, lightheadedness, syncopal events, peripheral edema (bilateral or unilateral), lower extremity pain, orthopnea, PND, abdominal pain, gastrointestinal distress (N/V/D), new rash, bruising or bleeding, myalgia, myopathy, or weight loss. No recent travel. No chest trauma. 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 In ED CT of the chest w/ following findings: - Multiple bilateral pulmonary emboli (small to moderate degree of embolic load) Patient denies history hypercoagulability or thrombophilia, recent surgeries, trauma to the lower extremities or torso, tobacco use, not obese, - Severe basilar predominant emphysematous changes of the lungs are nonspecific, but highly unusual for the patient's age. Asthma is felt to be an unlikely cause for this appearance, but cannot be completely excluded. Correlate clinically for other chronic pulmonary diseases, such as alpha 1 antitrypsin deficiency or potentially pulmonary Langerhans cell histiocytosis. - Prominent bronchiectasis within the bilateral infrahilar regions with ques tionable areas of either focal bronchiectasis versus early cystic changes within the lungs versus small cavitary lesions. An infectious process should be excluded clinically. Please consider fo llow-up CT of the chest in approximately 6-8 weeks. - Borderline prominent hilar and mediastinal lymph nodes - Non specific prominence of the wall of the esophagus. Please correlate clinically to exclude esophagitis. There mild esophageal/mediastinal varices. Patient History Medical History Asthma (Acute) GERD (gastroesophageal reflux disease) (Acute) History of alcohol abuse (Acute) Surgical History No history of previous surgery (Acute) Social History household members: spouse Smoking Status: Never smoker Family & Social History Social History: household members Spouse and 2 children Prior Living Arrangements House Safety & Behavioral: Feels Safe in Current Yes Environment Been Physically Hurt or No Threatened By a Person Suicidal Ideation Description None Tobacco & Substance use: Smoking Status Never smoker alcohol intake frequency Denies current EtOH use. Prior h/o EtOH abuse, quit in 2012. Substance Use Type No current or prior recreational drug use. Meds Home Medications Medication Instructions Recorded Confirmed Type ibuprofen 400 mg PO Q4-6H PRN 07/21/18 07/21/18 History mometasone-formoterol [Dulera] 1 puff INHALATION BID 07/21/18 07/21/18 History omeprazole magnesium [Prilosec OTC] 20 mg PO DAILY 07/21/18 07/21/18 History zafirlukast 20 mg PO BID 07/21/18 07/21/18 History Allergies Allergy/AdvReac Type Severity Reaction Status Date / Time No Known Drug Allergies Allergy Verified 07/21/18 10:31 Review of Systems Review of Systems All systems reviewed & are unremarkable except as noted in HPI and below Exam Vital Signs (past 8 hours): - 07/21/18 14:21 07/21/18 14:30 07/21/18 15:00 Temperature Pulse Rate 80 71 74 Respiratory Rate 14 15 14 Blood Pressure Blood Pressure [Left Arm] 117/63 122/69 113/67 Pulse Oximetry 98 100 100 07/21/18 16:19 07/21/18 16:43 07/21/18 16:55 Temperature 97.6 F Pulse Rate 70 69 62 Respiratory Rate 16 16 18 Blood Pressure 103/59 L 129/54 L Blood Pressure [Left Arm] 124/56 L Pulse Oximetry 97 100 97 07/21/18 20:31 Temperature 97.7 F Pulse Rate 56 L Respiratory Rate 18 Blood Pressure 115/52 L Blood Pressure [Left Arm] Pulse Oximetry Oxygen Delivery Method Room Air Oxygen Flow Rate 0 Narrative Exam Narrative: Constitutional: NAD Neurologic: AOx3, no focal neurological deficits Head: NC, AT Eyes: PERRL, EOMI, no scleral icterus Ears: external ears normal, no otorrhea Nose: external nose normal, no rhinorrhea or epistaxis Throat: dry MM, oropharynx w/o exudate Neck: no masses, lymphadenopathy, or JVD Chest / Respiratory: equal chest rise, unlabored respiratory effort, diminished, crackles present posteriorly Heart / CV: S1S2, no murmur Abdomen / GI: NT, ND, + BS, no organomegaly : no suprapubic tenderness, no CVA Peripheral / Vascular: warm to touch, DP and PT pulses palpable, no edema Musc: full ROM of upper and lower extremities, adequate muscle tone and bulk Skin: no ecchymosis or suspicious lesions / ulcers Objective Labs Result Diagrams: 07/21/18 12:45 07/21/18 12:45 Labs: Laboratory Results - last 24 hr 07/21/18 07/21/18 07/21/18 12:45 12:45 12:45 WBC 10.0 RBC 4.57 Hgb 13.9 Hct 41.6 MCV 91.1 MCH 30.5 MCHC 33.5 RDW 13.0 Plt Count 277 Neut % (Auto) 73.6 Lymph % (Auto) 19.3 L [place] % (Auto) 6.6 Eos % (Auto) 0.1 L Baso % (Auto) 0.4 Neut # (Auto) 7300 H Lymph # (Auto) 1900 [place] # (Auto) 700 Eos # (Auto) 0 Baso # (Auto) 0 PT 11.7 INR 1.0 APTT 28 Sodium 139 Potassium 4.3 Chloride 102 Carbon Dioxide 28 BUN 12 Creatinine 0.70 Estimated GFR > 60.0 BUN/Creatinine Ratio 17.1 Glucose 94 Calcium 9.3 Total Bilirubin 0.4 AST 32 ALT 53 Alkaline Phosphatase 68 Total Protein 7.2 Albumin 4.5 Globulin 2.7 Albumin/Globulin Ratio 1.7 Assessment & Plan Assessment & Plan narrative: Pulmonary Embolism, acute, present on admission Confirmed w/ CTA chest. No prior history. Unprovoked. No s/s of right-sided heart failure, hypotension, or cardiogenic shock - heparin drip - consult social work, re: evaluate for NOACs - echocardiogram - u/s of BLE to r/o DVT Hemoptysis, acute, present on admission Etiology is not entirely clear and requires further workup. Potentially due to GI causes. DDx: Bronchiectasis vs. acute PE vs. GIB vs. NSAID induced No prior h/o of bronchoscopy or endoscopy - Consider general surgery consult for an EGD - No overt coagulopathy or thrombocytopenia Severe Emphesema, acute, present on admission Severe basilar predominant emphysematous changes of the lungs are nonspecific, but highly unusual for patient's age. Asthma is felt to be an unlikely cause for this appearance, but cannot be completely excluded. Consider alpha antitrypsin deficiency or Langerhans cell histocytosis. Asthma, chronic cough, bronchiectasis, severe emphysematous changes early in life, emphysema with prominent basilar vs upper lung field hyperlucency, no history of tobacco use or secondhand exposure, no toxic or environmental exposure - serum alpha 1 antitrypsin level (send out lab) if found to have antitrypsin deficiency then will need to establish self with outpatient pulmonology and initiate augmentation therapy - check liver function (resuts reviewed, WNL) Bronchiectasis, present on admission, acuity is not known (acute vs chronic) CT Chest: Prominent bronchiectasis within the bilateral infrahilar regions with questionable areas of either focal bronchiectasis versus early cystic changes within the lungs versus small cavitary lesions. An infectious process should be excluded clinically. Please consider follow-up CT of the chest in approximately 6-8 weeks. h/o long standing asthma, however well controlled per eri's report; no significant or rhinnitis, sinusitis or otitis, no recurrent URIs, no recent acute virus. 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
[2018-07-21] MEDS: ACETAMINOPHEN 325 MG TABLET 650 MG PO (22:31)
[2018-07-21 23:29] LABS: Alanine Aminotransferase 47 IU/L (21-72); Albumin Globulin Ratio 1.5 (1.0-2.8); Alkaline Phosphatase 66 U/L (38-126); Aspartate Aminotransferase 28 IU/L (17-59); Bilirubin Total 0.3 mg/dL (0.2-1.3); Bilirubin Unconjugated 0.1 mg/dL (0.0-1.1); Globulin 2.6 g/dL (1.7-4.1); HEMOLYSIS < 15 (0-50); Total Protein 6.6 g/dL (6.3-8.2)
[2018-07-22] VITALS (16 sets, daily range): BP systolic 105–164; BP diastolic 45–92; PULSE 56–125; RESP 16–20; TEMP 36.4–37; O2SAT 96–99
[2018-07-22] MEDS: HEPARIN 5,000 UNIT/ML VIAL 2000 UNIT IV ×2 (00:13→12:51)
[2018-07-22] MEDS: PANTOPRAZOLE 40 MG VIAL IV (00:52)
--- NOTE | 2018-07-22 04:03 | PC.NURSE ---
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 Waiting for sample for fecal occult testing, pt aware. Pt on heparin drip at 1000/hr per protocol. Last APTT 58, will be redrawn at 4:30 will adjust rate per protocol, next APTT should be ordered at 10:30 per protocol. Pt's own meds, Dulera and Zafirlukast, were sent down to pharmacy to be verified, provider aware of lag between when pt normally takes med and when it is expected back from pharmacy. Will continue to monitor.
[2018-07-22 04:53] LABS: Add Manual Diff / Slide Review NO; Basophils Absolute Auto 0 /uL (0-100); Basophils Percent Auto 0.5 % (0-2); Eosinophils Absolute Auto 100 /uL (0-450); Hematocrit 42.2 % (41-53); Hemoglobin 14.1 g/dL (13.5-17.5); Lymphocytes Absolute Auto 2800 /uL (1100-4500); Lymphocytes Percent Auto 38.1 % (25-40); Mean Corpuscular HGB Conc 33.5 % (30-36); Mean Corpuscular Hemoglobin 30.6 PG (26-34); Mean Corpuscular Volume 91.4 fL (80-100); Monocytes Absolute Auto 600 /uL (0-900); Monocytes Percent Auto 8.8 % (3-14); Neutrophils Absolute Auto 3700 /uL (1500-7000); Neutrophils Percent Auto 50.6 % (50-75); Platelet Count 254 X10^3/uL (150-400); Red Blood Cell Count 4.61 X10^6/uL (4.5-5.9); Red Cell Distribution Width 12.9 % (11.6-14.8); White Blood Cell Count 7.3 X10^3/uL (4.5-11.0)
[2018-07-22 04:54] LABS: PTT Partial Thromboplastin Tim 72 SECONDS (26.4-36.2)
[2018-07-22 05:16] LABS: Procalcitonin < 0.05 ng/mL (<0.5)
--- NOTE | 2018-07-22 06:00 | DI.US.S_ITS ---
PROCEDURE: US PERIPH VENOUS LOW EXTREM BI INDICATIONS: pulmonary embolism TECHNIQUE: Real-time imaging, as well as color and pulse Doppler interrogation, were performed of the deep veins of both legs from the inguinal ligament to the popliteal fossa. COMPARISON: None. FINDINGS: The deep veins are normally compressible, and free of intraluminal thrombus. Color and pulse Doppler demonstrate normal phasic intravascular flow. There is normal augmentation response to distal compression maneuver. IMPRESSION: No DVT found. Dictated by: Ajith Sifuentes M.D. on 07/23/2018 at 9:59 Approved by: Ajith Sifuentes M.D. on 07/23/2018 at 9:59
--- NOTE | 2018-07-22 06:00 | DI.ECHO.S_ITS ---
[facility] +---------+ : : [address] : [address] : : : : [id number] : : : : Phone: [phone]+ Echocardiogram Report + + :Name: SONYA BAILEY Study Date: 07/22/2018 Height: 66 in : :[facility] Exam Location: [facility] Weight: 117 lb : : Gender: Male BSA: 1.6 m2 : :: 1985 Age: 33 yrs BP: 109/45 mmHg: :Reason For Study: Pulmonary Embolism : :Ordering Physician: Bhupendra : :Hospitalist Performed By: Noemi Manning : :Referring: CEDRICK MOODY : + + Interpretation Summary The left ventricle is normal in size, wall thickness, and systolic function without any focal wall motion abnormalities with the ejection fraction visually estimated to be 60-65%. Diastolic parameters suggest probable normal left ventricular diastolic function and normal filling pressures. The right ventricle is normal in size and function. Pulmonary artery pressures cannot be estimated because of the lack of a measurable TR jet velocity but the IVC suggests a CVP of around 3 mmHg. Both atria are normal in size. There is no significant valvular heart disease. The echocardiogram is within normal limits. Procedure: A two-dimensional transthoracic echocardiogram with color flow and Doppler was performed. The study quality was technically good. There is no prior echocardiogram noted for this patient. The patient was in normal sinus rhythm during the exam. Left Ventricle: The left ventricle is normal in size, wall thickness, and systolic function without any focal wall motion abnormalities. A false chord is noted (normal variant). The ejection fraction is estimated to be 60-65%. Diastolic parameters suggest probable normal left ventricular diastolic function and normal filling pressures. Right Ventricle: The right ventricle is normal in size and function. Atria: Both atria are normal in size. The interatrial septum is intact with no evidence for an atrial septal defect. Mitral Valve: The mitral valve is normal in structure and function. There is trace mitral regurgitation. Aortic Valve: The aortic valve is trileaflet. The aortic valve opens well. No aortic regurgitation is present. Tricuspid Valve: The tricuspid valve is normal in structure and function. There is a trace or physiologic amount of tricuspid regurgitation. Pulmonary artery pressures cannot be estimated because of the lack of a measurable TR jet velocity but the IVC suggests a CVP of around 3 mmHg. Pulmonic Valve: The pulmonic valve is normal in structure and function. There is a trace or physiologic amount of pulmonic regurgitation. There is no significant valvular heart disease. Great Vessels: The aortic root is normal size. The ascending aorta could not be visualized. The IVC is of normal diameter and collapses greater than 50% with a sniff. This suggests a low right atrial pressure of 3 mm Hg. Pericardium/ Pleura There is no pericardial effusion. There is an anterior echo-free space consistent with a fat pad. There is no pleural effusion. MMode/2D Measurements & Calculations LVIDd: 5.1 cm LVOT diam: 2.4 cm LVIDs: 3.3 cm Ao root diam: 3.4 cm FS: 36.1 % IVSd: 0.80 cm LVPWd: 0.77 cm LV goodwin. diameter/BSA (cm/m^2): 3.2 LV sys. diameter/BSA (cm/m^2): 2.1 LA A2 area: 19.5 cm2 RA long axis: 4.4 cm LA A4 area: 11.3 cm2 RA area: 14.9 cm2 LA length (vol): 4.5 cm RA vol: 42.8 ml LA vol: 41.6 ml RA : 26.9 ml/m2 LA vol index: 26.1 ml/m2 IVC diam: 2.0 cm TAPSE: 2.2 cm Doppler Measurements & Calculations Ao V2 max: 135.1 cm/sec LVOT Max Js: 114.9 cm/sec Ao V2 mean: 91.5 cm/sec LV V1 max P.3 mmHg Ao max P.3 mmHg LV V1 VTI: 24.8 cm Ao mean P.8 mmHg TODD(I,D): 4.0 cm2 Ao V2 VTI: 26.9 cm TODD(V,D): 3.7 cm2 sev ratio: 0.92 TODD indexed to BSA (cm^2/m^2): 2.5 MV E max js: 71.5 cm/sec PA V2 max: 74.1 cm/sec MV A max js: 50.8 cm/sec PA V2 mean: 44.7 cm/sec MV E/A: 1.4 PA mean P.95 mmHg Med Peak E' Js: 14.2 cm/sec PA pr(Accel): -8.3 mmHg E/E' med: 5.0 Lat Peak E' Js: 22.5 cm/sec E/E' lat: 3.2 E/e' average: 4.1 MV dec time: 0.15 sec SV(OT): 108.2 ml Reading Physician:ERNESTO
[2018-07-22] MEDS: ZAFIRLUKAST 20 MG TABLET PO ×2 (08:58→20:32)
[2018-07-22] MEDS: PANTOPRAZOLE 40 MG TABLET PO ×2 (08:58→22:04)
[2018-07-22] MEDS: INFLUENZA VACCINE 0.5 ML SYRINGE IM (08:58)
[2018-07-22] MEDS: BUTALB/APAP/CAFFEINE 50/325/40 TABLET 1 EACH PO (09:37)
[2018-07-22] MEDS: MOMETASONE FORMOTEROL 1 EACH INHALATION ×2 (09:40→20:32)
[2018-07-22 10:56] LABS: PTT Partial Thromboplastin Tim 56 SECONDS (26.4-36.2)
[2018-07-22] MEDS: ACETAMINOPHEN 325 MG TABLET 650 MG PO (11:08)
[2018-07-22] MEDS: HEPARIN DRIP 25,000 UNIT/500 ML IV.SOLN 22 UNIT IV (12:46)
--- NOTE | 2018-07-22 14:03 | PC.NURSE ---
AO x3 and making needs known with clear speech. C/o headache rated 6/10 on 0-10 pain scale despite administration of tylenol and fioricet. Reports hx of frequent headaches at home. Locates headache across forehead. Declines add'l administration of PRN meds as first doses were ineffective. Called to Dr. Cole and reported ineffective med regimen and pt c/o. Dr. Cole instructs to monitor neuro status for now and that she will round soon to assess. Update given to pt/family. Pt denies any numbness, tingling, burning of extremities, unilateral weakness, confusion, vision changes. Pupils are equal, round and reactive to light. Face is symmetrical. VSS.
[2018-07-22] MEDS: SUMAtriptan 25 MG TABLET 100 MG PO ×2 (17:12→19:15)
[2018-07-22 18:58] LABS: Add Manual Diff / Slide Review NO; Basophils Absolute Auto 0 /uL (0-100); Basophils Percent Auto 0.5 % (0-2); Eosinophils Absolute Auto 100 /uL (0-450); Eosinophils Percent Auto 1.5 % (2-4); Hematocrit 42.5 % (41-53); Hemoglobin 14.3 g/dL (13.5-17.5); Lymphocytes Absolute Auto 2400 /uL (1100-4500); Lymphocytes Percent Auto 29.1 % (25-40); Mean Corpuscular HGB Conc 33.7 % (30-36); Mean Corpuscular Hemoglobin 30.8 PG (26-34); Mean Corpuscular Volume 91.3 fL (80-100); Monocytes Absolute Auto 700 /uL (0-900); Monocytes Percent Auto 8.9 % (3-14); Neutrophils Absolute Auto 5000 /uL (1500-7000); Platelet Count 272 X10^3/uL (150-400); Red Blood Cell Count 4.65 X10^6/uL (4.5-5.9); Red Cell Distribution Width 12.9 % (11.6-14.8); White Blood Cell Count 8.3 X10^3/uL (4.5-11.0)
[2018-07-22] MEDS: WARFARIN 5 MG TABLET PO (19:08)
[2018-07-22 19:26] LABS: PTT Partial Thromboplastin Tim 75 SECONDS (26.4-36.2)
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
--- NOTE | 2018-07-22 22:07 | PC.NURSE ---
Shift note: Willian is A&Ox3 tonight, conversive, denies any SOB. Is coughing up small amts of bright red blood, intermittently. At 1830 he called staff into room
--- NOTE | 2018-07-22 22:09 | PC.NURSE ---
Shift note: Willian is A&Ox3 tonight, conversive. Denies SOB, coughing intermittently, 3 x's tonight he has called staff into room after coughing & then spitting up small amts of bright red blood, unmeasureable as mixed w/scant phlegm, but appears about 2 teaspoons of blood. 1st time tonight it happened was around 1819 when he called staff in room, saying he felt like something popped again, holding right chest. O2 sat on RA maintaining 94-100%, continuous pulse ox has never alarmed nor does he c/o SOB. LS clear but diminished to left and right posterior gallagher. At that time I notified Dr Cole of hemoptysis & pt c/o something popping. VS stable at that time, BP . She ordered H&H which came back at . Since that time he has coughed up same amt of bright red blood 2 times. Denies SOB, sats maintaining 96-100% airline transport pilot Catalina aware of situation & in room to assess patient. PTT drawn at 1829 was 75 , per Heparin Drip protocol I made no change to current drip rate which is 1100 units/hr (22 ml/hr.) Per protocol (& discussion last night with David in pharmacy) I entered order for STAT PTT lab draw 6 hours from last draw, ordered for 07/23 at 0030. Around 0 Pradeep LUCIANO in room to talk to patient about plan to transfer him to [place]. At that time tele started alarming, per BILINGUAL MANAGER, HR tachy up to 160. For few minutes this nurse watching patient's HR variable on tele monitor, 100-150's. Sinus Tach. BP 164/92. BILINGUAL MANAGER reported that tele has been variable throughout entire evening, sometimes 100-110 in sinus tach, sometimes sinus arrhythmia. After discussion with MUSTAPHA, patient was visibly upset, crying with tears streaming down cheeks but remains calm. After 10 minutes HR back in the 90's. Kriss wilde RN in room to give emotional support & teaching about reason for transfer to [place]. He said he wants some privacy so he can call his . Pt encouraged to call us for any reason &/or when done talking to . Pradeep LUCIANO in pt's room several times in last hour to see patient. Per airline transport pilot Catalina, we are awaiting Prov to call back when bed available.
[2018-07-22] MEDS: SODIUM CHLORIDE 0.9% 1,000 ML 75 ML IV (23:00)
[2018-07-23] VITALS (9 sets, daily range): BP systolic 110–112; BP diastolic 65–70; PULSE 60–80; RESP 18; TEMP 36.8–36.9; O2SAT 95–98
[2018-07-23 00:45] LABS: PTT Partial Thromboplastin Tim 70 SECONDS (26.4-36.2)
[2018-07-23 05:42] LABS: Add Manual Diff / Slide Review NO; Basophils Absolute Auto 0 /uL (0-100); Basophils Percent Auto 0.5 % (0-2); Eosinophils Absolute Auto 100 /uL (0-450); Eosinophils Percent Auto 1.8 % (2-4); Hematocrit 42.6 % (41-53); Hemoglobin 14.3 g/dL (13.5-17.5); Lymphocytes Absolute Auto 2000 /uL (1100-4500); Lymphocytes Percent Auto 25.3 % (25-40); Mean Corpuscular HGB Conc 33.5 % (30-36); Mean Corpuscular Hemoglobin 30.7 PG (26-34); Mean Corpuscular Volume 91.6 fL (80-100); Monocytes Absolute Auto 800 /uL (0-900); Neutrophils Absolute Auto 4900 /uL (1500-7000); Neutrophils Percent Auto 62.4 % (50-75); Platelet Count 255 X10^3/uL (150-400); Red Blood Cell Count 4.65 X10^6/uL (4.5-5.9); Red Cell Distribution Width 13.2 % (11.6-14.8); White Blood Cell Count 7.8 X10^3/uL (4.5-11.0)
[2018-07-23] MEDS: MOMETASONE FORMOTEROL 1 EACH INHALATION (05:42)
[2018-07-23 05:44] LABS: Prothrombin Time 11.8 SECONDS (10.1-12.7)
[2018-07-23] MEDS: ZAFIRLUKAST 20 MG TABLET PO (05:45)
[2018-07-23 05:47] LABS: PTT Partial Thromboplastin Tim 66 SECONDS (26.4-36.2)
[2018-07-23 05:49] LABS: Blood Urea Nitrogen 12 mg/dL (9-20); Calcium 9.3 mg/dL (8.4-10.2); Carbon Dioxide 26 mmol/L (22-32); Chloride 105 mmol/L (98-107); Estimated Glomerular Filt Rate > 60.0 mL/min (>60); Glucose 108 mg/dL (70-100); HEMOLYSIS 34 (0-50); Potassium 4.3 mmol/L (3.4-5.1); Sodium 139 mmol/L (137-145)
[2018-07-23 06:32] LABS: Procalcitonin < 0.05 ng/mL (<0.5)
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
--- NOTE | 2018-07-23 08:19 | CM.DPNOTE ---
Trnsf note: Reviewed chart. Pt being transf to [facility] for pulmonary evaluation, interventional radiology and heart w/u. JW
[2018-07-23] MEDS: PANTOPRAZOLE 40 MG TABLET PO (09:11)
[2018-07-23] MEDS: BUTALB/APAP/CAFFEINE 50/325/40 TABLET 1 EACH PO (11:35)
[2018-07-23] MEDS: HEPARIN DRIP 25,000 UNIT/500 ML IV.SOLN 22 UNIT IV (12:18)
[2018-07-23 14:12] LABS: Alpha 1 Anti Trypsin 115 mg/dL (83-199)
--- NOTE | 2018-07-23 15:40 | PC.NURSE ---
Discharge Note Transferred to [facility] via ambulance at 1540. Report given to ambulance crew and to Tate RN at [facility] (receiving nurse). All questions answered. Info packet with patient and all belongings including own inhaler and cell phone with patient. updated and at bedside upon transfer.
== END 2018-07-23 15:41 | disposition short-term general hospital (02) | DRG 176 ==
LOC: ED 12:34 → AC 15:10
PROVIDERS: Nurse Practitioner Gerontology; Admitting Provider Internal Medicine; Emergency Provider Nurse Practitioner Family; Family Provider Family Medicine; Visit Provider Internal Medicine
DX: I26.99 Other pulmonary embolism without acute cor pulmonale (principal); R04.2 Hemoptysis; K92.1 Melena; J43.9 Emphysema, unspecified; J47.9 Bronchiectasis, uncomplicated; J45.909 Unspecified asthma, uncomplicated; K21.9 Gastro-esophageal reflux disease without esophagitis
CPT/HCPCS: 36415; 36591; 71046; 71275; 80048; 80053; 80076; 82103; 84145; 85025; 85610; 85730; 90471; 90656; 93005; 93306; 93970; 94640; 94760; 94762; 96365; 96366; 96375; 99283; 99285; C9113; J1644; Q2038; Q9967

== ENCOUNTER 2018-07-30 07:50 | Emergency (ER) | payer OTHER, SELFPAY ==
[2018-07-21 17:01] VITALS: BMI 19.0
[2018-07-30 07:56] VITALS: BP 129/83; TEMP 36.6; BMI 20.9
[2018-07-30 08:06] VITALS: PULSE 99; RESP 16; TEMP 36.6; O2SAT 96
--- NOTE | 2018-07-30 08:08 | ED_ITS ---
HPI - General Adult General Chief complaint: Shortness of Breath/Dyspnea Stated complaint: coughing up blood Time Seen by Provider: 07/30/18 08:02 Source: patient and old records reviewed Mode of arrival: ambulatory Limitations: no limitations History of Present Illness HPI narrative: This is a 33-year-old male who comes to the emergency department with complaint of coughing up blood. Patient was seen here on the for similar had a CT scan and found have multiple small pulmonary emboli. Patient was admitted to the hospital and ultimately transferred to another facility. There they had had discussion about possibly doing scope although it is unclear if they were going to do bronchoscopy or endoscopy which ultimately decided not to. Patient has been on Coumadin since. He states he just had his dose up to yesterday as he was subtherapeutic at 1.8 on his INR. Patient states he has had some very trace small amount of hemoptysis but in the last 12 hr had a little bit more with some bright red blood. States possibly a tbsp. Patient has not had any chest pain, no shortness of breath, no swelling of any of extremities at any time. His exact source of clot has not been found. Patient states that he does have a history of pneumothorax secondary to traumatic injury and had chest tube placement. He became concerned that he was having increasing amount of blood with the cough he states similar to the amount when he 1st arrived to the hospital. Patient states that he has otherwise been asy mptomatic. Related Data Home Medications Medication Instructions Recorded Confirmed ibuprofen 400 mg PO Q4-6H PRN 07/21/18 07/30/18 mometasone-formoterol 1 puff INHALATION BID 07/21/18 07/30/18 zafirlukast 20 mg PO BID 07/21/18 07/30/18 warfarin See Rx Instructions .ROUTE .COMPLEX 07/30/18 07/30/18 Previous Rx's Medication Instructions Recorded pantoprazole 40 mg PO BID #1 tab 07/23/18 sumatriptan succinate [Imitrex] 100 mg PO PRN PRN #1 tab 07/23/18 Allergies Allergy/AdvReac Type Severity Reaction Status Date / Time No Known Drug Allergies Allergy Verified 07/30/18 07:56 Review of Systems Review of Systems ROS Unobtainable: All systems reviewed & are unremarkable except as noted in HPI and below Constitutional Denies chills, Denies fever(s), Denies lethargy and Denies weakness Cardiovascular Denies chest pain, Denies syncope, Denies edema, Denies irregular heart rhythm, Denies lightheadedness, Denies palpitations, Denies dyspnea, Denies dyspnea on exertion and Denies orthopnea Respiratory Denies change in phlegm color, Denies chest congestion, Denies cough, Reports hemoptysis, Denies excessive phlegm production, Denies pain on inspiration, Denies pain with cough, Denies dyspnea, Denies dyspnea on exertion and Denies wheezing Gastrointestinal Gastrointestinal: Denies abdominal pain, Denies change in bowel habits, Denies diarrhea, Denies nausea and Denies vomiting Musculoskeletal Denies tingling and Denies other (swelling of extremities) Neurologic Denies syncope, Denies tingling, Denies paresthesias and Denies weakness Endocrine Denies palpitations Allergic/Immunologic Denies wheezing PFSH Medical History Asthma (Acute) GERD (gastroesophageal reflux disease) (Acute) History of alcohol abuse (Acute) Pulmonary embolism (Acute) Surgical History No history of previous surgery (Acute) Social History household members: spouse Smoking Status: Never smoker Social History household members: spouse Smoking Status: Never smoker Exam Narrative Exam Narrative: GENERAL: Alert and oriented x three, , well-appearing male in no acute distress. HEENT: Head normocephalic, atraumatic, EOMI, pupils reactive, face symmetric, moist mucous membranes NECK: Supple, full range of motion CARDIOVASCULAR: Regular rate and rhythm without murmurs, rubs or gallops. RESPIRATORY: Breath sounds equal bilaterally, no wheezes rales or rhonchi. No tachypnea, no accessory muscle use. ABDOMEN: Soft, nontender. Normoactive bowel sounds all 4 quadrants. No guarding or rebound, rigidity, no mass : No CVA tenderness EXTREMITIES: Normal range of motion, no clubbing or edema. Neurovascularly intact NEUROLOGICAL: Cranial nerves II through XII grossly intact. Moving all extremities SKIN: Warm, dry, no petechiae, no rashes or lesions. Initial Vital Signs Initial Vital Signs: Vital Signs Temperature 97.9 F 07/30/18 07:56 Blood Pressure 129/83 07/30/18 07:56 Course Orders Ordered: ED Orders 07/30/18 08:50 Lactate (Lactic Acid) Stat Vital Signs - 8 hr 07/30/18 07:56 07/30/18 08:06 07/30/18 09:14 Temperature 97.9 F 97.9 F Pulse Rate 99 H 63 Respiratory Rate 16 14 Blood Pressure 129/83 Blood Pressure [Right Arm] 115/66 Pulse Oximetry 96 97 Medical Decision Making Lab Data Lab results reviewed: Yes I reviewed the patient's lab results. Result diagrams: 07/30/18 08:03 07/30/18 08:03 Lab Results 07/30/18 07/30/18 07/30/18 Range/Units 08:03 08:03 08:03 WBC 6.5 (4.5-11.0) X10^3/uL RBC 4.68 (4.5-5.9) X10^6/uL Hgb 14.5 (13.5-17.5) g/dL Hct 43.0 (41-53) % MCV 92.0 (80-100) fL MCH 31.0 (26-34) PG MCHC 33.6 (30-36) % RDW 13.4 (11.6-14.8) % Plt Count 269 (150-400) X10^3/uL Neut % (Auto) 67.0 (50-75) % Lymph % (Auto) 22.2 L (25-40) % [place] % (Auto) 9.6 (3-14) % Eos % (Auto) 0.5 L (2-4) % Baso % (Auto) 0.7 (0-2) % Neut # (Auto) 4400 (2494-5613) /uL Lymph # (Auto) 1400 (6614-3411) /uL [place] # (Auto) 600 (0-900) /uL Eos # (Auto) 0 (0-450) /uL Baso # (Auto) 0 (0-100) /uL PT 22.6 H D (10.1-12.7) SECONDS INR 1.9 H (0.9-1.3) APTT 44 H D (26.4-36.2) SECONDS Sodium 140 (137-145) mmol/L Potassium 4.3 (3.4-5.1) mmol/L Chloride 102 (98-107) mmol/L Carbon Dioxide 28 (22-32) mmol/L BUN 12 (9-20) mg/dL Creatinine 0.80 (0.66-1.25) mg/dL Estimated GFR > 60.0 (>60) mL/min BUN/Creatinine Ratio 15.0 (6-22) Glucose 109 H (70-100) mg/dL Lactate (0.7-2.1) mmol/L Calcium 9.6 (8.4-10.2) mg/dL Total Bilirubin 0.2 (0.2-1.3) mg/dL AST 94 H (17-59) IU/L ALT 256 H (21-72) IU/L Alkaline Phosphatase 79 (38-126) U/L Total Creatine Kinase 108 (55-170) U/L CK-MB (CK-2) 1.08 (<2.37) ng/mL CK-MB (CK-2) Rel Index 1.0 L (1.5-5.0) % Troponin I < 0.012 (0.01-0.034) ng/mL Total Protein 8.0 (6.3-8.2) g/dL Albumin 4.8 (3.5-5.0) g/dL Globulin 3.2 (1.7-4.1) g/dL Albumin/Globulin Ratio 1.5 (1.0-2.8) 07/30/18 Range/Units 08:50 WBC (4.5-11.0) X10^3/uL RBC (4.5-5.9) X10^6/uL Hgb (13.5-17.5) g/dL Hct (41-53) % MCV (80-100) fL MCH (26-34) PG MCHC (30-36) % RDW (11.6-14.8) % Plt Count (150-400) X10^3/uL Neut % (Auto) (50-75) % Lymph % (Auto) (25-40) % [place] % (Auto) (3-14) % Eos % (Auto) (2-4) % Baso % (Auto) (0-2) % Neut # (Auto) (2216-2788) /uL Lymph # (Auto) (5911-4309) /uL [place] # (Auto) (0-900) /uL Eos # (Auto) (0-450) /uL Baso # (Auto) (0-100) /uL PT (10.1-12.7) SECONDS INR (0.9-1.3) APTT (26.4-36.2) SECONDS Sodium (137-145) mmol/L Potassium (3.4-5.1) mmol/L Chloride (98-107) mmol/L Carbon Dioxide (22-32) mmol/L BUN (9-20) mg/dL Creatinine (0.66-1.25) mg/dL Estimated GFR (>60) mL/min BUN/Creatinine Ratio (6-22) Glucose (70-100) mg/dL Lactate 0.8 (0.7-2.1) mmol/L Calcium (8.4-10.2) mg/dL Total Bilirubin (0.2-1.3) mg/dL AST (17-59) IU/L ALT (21-72) IU/L Alkaline Phosphatase (38-126) U/L Total Creatine Kinase (55-170) U/L CK-MB (CK-2) (<2.37) ng/mL CK-MB (CK-2) Rel Index (1.5-5.0) % Troponin I (0.01-0.034) ng/mL Total Protein (6.3-8.2) g/dL Albumin (3.5-5.0) g/dL Globulin (1.7-4.1) g/dL Albumin/Globulin Ratio (1.0-2.8) ECG Data Attestation: I personally reviewed and interpreted this ECG as follows: Prior ECG tracings: available for review Interpretation: Sinus rhythm with a rate of 62 APR interval 154 [place] 97 QTC of 369. EKG appears similar to prior. MDM Narrative Medical decision making narrative: Patient came in with concern for continued hemoptysis which is slightly increased since his stay in the hospital. States back to similar levels when he was initially evaluated, patient's labs do not show any change in his hemoglobin. He still slightly subtherapeutic on his INR although had an increased dose yesterday and per patient report his INR is slowly rising. Discussed with patient His dose was increased to 7.5 mg yesterday, he is expected to take 7.5 for the next 2 days. Patient was complaining a little bit pain at the elbow but not really the inner arm. We did discuss doing an ultrasound for DVT. Patient deferred we did have a long discussion and was offered multiple times. Patient is not having any other symptoms consistent and he is on appropriate treatment for this although slightly subtherapeutic at this time. We discussed at length signs and symptoms to watch for and reasons to return. His hemoglobin has been stable since his initial hospitalization with no decrease on he has not had any more hemoptysis in the department. Discharge Plan Departure Patient Disposition: Home Clinical Impression: Pulmonary emboli, Hemoptysis Discharge Date/Time: 07/30/18 10:11 Interventions: ED Discharge Assessment Last Done: 07/30/18 09:52 Instructions: DI for Pulmonary Embolism Activity Restrictions/Additional Instructions: Follow-up for your repeat INR tomorrow, and with your follow-up appointment with your physician on Saturday morning. Continue your warfarin at 7.5 mg as directed by your physician for 3 days total. Return to the emergency department for any chest pain, shortness of breath, lightheadedness persistent hemoptysis especially if it is increasing in amount or frequency. Prescriptions: No Action zafirlukast 20 mg tablet 20 mg PO BID RF: 0 mometasone-formoterol 100-5 mcg/actuation HFA aerosol inhaler 1 puff Inhalation BID RF: 0 ibuprofen 200 mg Capsule 400 mg PO Q4-6H PRN (Reason: Headache) RF: 0 sumatriptan succinate [Imitrex] 25 mg Tablet 100 mg PO PRN PRN (Reason: Headache) Qty: 1 RF: 0 pantoprazole 40 mg Tablet,Delayed Release (Dr/Ec) 40 mg PO BID Qty: 1 RF: 0 warfarin 2.5 mg tablet See Rx Instructions .ROUTE .COMPLEX RF: 0 Referrals: Efe Kent MD [Non-Staff] -
[2018-07-30 08:27] LABS: Add Manual Diff / Slide Review NO; Basophils Absolute Auto 0 /uL (0-100); Basophils Percent Auto 0.7 % (0-2); Eosinophils Absolute Auto 0 /uL (0-450); Eosinophils Percent Auto 0.5 % (2-4); Hemoglobin 14.5 g/dL (13.5-17.5); Lymphocytes Absolute Auto 1400 /uL (1100-4500); Lymphocytes Percent Auto 22.2 % (25-40); Mean Corpuscular HGB Conc 33.6 % (30-36); Monocytes Absolute Auto 600 /uL (0-900); Monocytes Percent Auto 9.6 % (3-14); Neutrophils Absolute Auto 4400 /uL (1500-7000); Platelet Count 269 X10^3/uL (150-400); Red Blood Cell Count 4.68 X10^6/uL (4.5-5.9); Red Cell Distribution Width 13.4 % (11.6-14.8); White Blood Cell Count 6.5 X10^3/uL (4.5-11.0)
[2018-07-30 08:34] LABS: INR 1.9 (0.9-1.3); Prothrombin Time 22.6 SECONDS (10.1-12.7)
[2018-07-30 08:37] LABS: PTT Partial Thromboplastin Tim 44 SECONDS (26.4-36.2)
[2018-07-30 08:39] LABS: Alanine Aminotransferase 256 IU/L (21-72); Albumin 4.8 g/dL (3.5-5.0); Albumin Globulin Ratio 1.5 (1.0-2.8); Alkaline Phosphatase 79 U/L (38-126); Aspartate Aminotransferase 94 IU/L (17-59); Bilirubin Total 0.2 mg/dL (0.2-1.3); Blood Urea Nitrogen 12 mg/dL (9-20); Calcium 9.6 mg/dL (8.4-10.2); Carbon Dioxide 28 mmol/L (22-32); Chloride 102 mmol/L (98-107); Creatine Kinase 108 U/L (55-170); Estimated Glomerular Filt Rate > 60.0 mL/min (>60); Globulin 3.2 g/dL (1.7-4.1); Glucose 109 mg/dL (70-100); HEMOLYSIS < 15 (0-50); Potassium 4.3 mmol/L (3.4-5.1); Sodium 140 mmol/L (137-145)
[2018-07-30 08:50] LABS: Troponin I < 0.012 ng/mL (0.01-0.034)
[2018-07-30 08:54] LABS: Creatine Kinase MB 1.08 ng/mL (<2.37)
[2018-07-30 09:07] LABS: Lactate (Lactic Acid) 0.8 mmol/L (0.7-2.1)
[2018-07-30 09:14] VITALS: BP 115/66; PULSE 63; RESP 14; O2SAT 97
== END 2018-07-30 10:11 | disposition home or self-care (01) ==
PROVIDERS: Emergency Provider Emergency Medicine; Family Provider Family Medicine
DX: I26.99 Other pulmonary embolism without acute cor pulmonale (principal); R04.2 Hemoptysis
CPT/HCPCS: 36415; 36591; 80053; 82550; 82553; 83605; 84484; 85025; 85610; 85730; 93005; 93010; 99283; 99284

== ENCOUNTER → 2019-02-04 17:22 | Outpatient (CLI) | payer OTHER, SELFPAY ==
[2018-07-21 17:01] VITALS: BMI 19.0
[2019-02-04 18:16] LABS: D Dimer < 200 ng/mL (<230)
== END ==
PROVIDERS: PCP Physician Assistant Medical; Visit Provider Internal Medicine Pulmonary Disease
DX: I27.82 Chronic pulmonary embolism (principal)
CPT/HCPCS: 36415; 85379